=== PATIENT | male | born 1965 | race Caucasian/White ===

== ENCOUNTER 2024-05-16 13:02 | Inpatient (IN) | payer OTHER, SELFPAY ==
[2024-05-16] VITALS (15 sets, daily range): BP systolic 97–118; BP diastolic 70–88
[2024-05-16] MEDS: OFIRMEV 100 IV (10:39)
[2024-05-16] MEDS: NSS 1000 IV (10:39)
[2024-05-16 10:40] LABS: % Basophils 0.3 % (0-2); % Immature Granulocytes 0.7 % (0-0.5); % Lymphocytes 7.6 % (20.5-51.1); % Monocytes 7.3 % (1.7-9.3); % Neutrophils 84.1 % (42.2-75.2); Absolute Basophils 0.1 10^3/uL (0-0.2); Absolute Immature Granulocytes 0.2 10^3/uL (0-0.05); Absolute Lymphocytes 1.7 10^3/uL (1.2-3.4); Absolute Monocytes 1.6 10^3/uL (0.1-0.6); Absolute Neutrophils 18.8 10^3/uL (1.4-6.5); Hematocrit 41.1 % (39.0-52.0); Hemoglobin 14.2 g/dL (13.0-18.0); Mean Corp Hgb Conc. 34.5 g/dL (33.0-37.0); Mean Corpuscular Hgb 32.6 pg (27.0-31.0); Mean Corpuscular Volume 94.3 fL (80.0-94.0); Mean Platelet Volume 9.4 fL (7.4-10.4); Nucleated Red Blood Cells % 0 % (-); Platelet Count 343 10^3/uL (130-400); Red Blood Cell Count 4.36 10^6/uL (4.70-6.10); Red Cell Dist. Width 13.6 % (11.5-14.5); White Blood Cell Count 22.3 10^3/uL (4.8-10.8)
--- NOTE | 2024-05-16 10:44 | EDRN ---
When moving pt, he tenses his extremities and resists against nurse
--- NOTE | 2024-05-16 10:54 | ED.GENMED ---
History of Present Illness
General
Chief Complaint: Change in Mental Status
Source: detention records
Exam Limitations: clinical condition
Time Seen by Provider: 05/16/24 09:58
History of Present Illness
History of Present Illness:
58-year-old male with history of traumatic brain injury and COPD who presented with increased lethargy. Found to be febrile on arrival. Patient also has a history of schizoaffective disorder. Patient is unable to contribute to his own history as
he is currently nonverbal. He reportedly is more alert than yesterday.
Past History
Past History
ED Past Medical History: Other (Traumatic brain injury, COPD, schizophrenia, anxiety)
Social History
Alcohol: Occasional
Personal: Single
Living: with family
Phy Exam
Physical Exam
Physical Exam:
CONSTITUTIONAL Patient awake but a bit somnolent, febrile. Vital signs reviewed.
HEAD atraumatic
EYES eyelids normal to inspection, Extraocular muscles intact, Conjunctiva normal, Sclera normal.
NECK normal range of motion, Trachea midline, no jugular venous distention.
RESPIRATORY CHEST No respiratory distress noted, Chest expansion equal, hypoxic on telemetry, diminished bilaterally with few rhonchi scattered at the bases bilaterally
CARDIOVASCULAR regular rate and rhythm, Heart sounds normal.
ABDOMEN No distention.
BACK normal inspection, no obvious deformities
UPPER EXTREMITY no cyanosis, no edema.
LOWER EXTREMITY no cyanosis, no edema.
NEURO awake but slightly somnolent, I do not see any purposeful extremity movement.
Course
Orders/Labs/Results
Orders:
Orders
05/16/24 10:03
Chest X-ray Portable [CR Chest Portable - 1 View] Urgent
Comment:
Reason For Exam: fever
Reason Study Needs to be Portable: Unable to Transport
05/16/24 10:25
Acetaminophen 1000MG/100Ml [Ofirmev] 1,000 mg in 100 ml IV ONCE
Acetaminophen IV Indication:: No OH & No Enteral Access
05/16/24 10:26
0.9% Sodium Chloride 1000 ml [Nss] 1,000 ml IV BOLUS
05/16/24 10:28
COVID-19 Antigen Urgent
Source: Nasal Swab
Complete Blood Count/With Diff Urgent
Urinalysis Reflex To Culture Urgent
Date Specimen was Collected: 05/16/24
Time Specimen was Collected: 10:19
Blood Culture Urgent
HENNA Source: Blood/Venous
Specimen Description:
05/16/24 10:48
Comprehensive Metabolic Panel Urgent
Lactic Acid Urgent
05/16/24 10:52
Piperacillin/Tazo 4.5 Gram [Zosyn] 4.5 gram in 100 ml IV NOW
05/16/24 10:59
Vancomycin [Vancocin] 2,000 mg 0.9% Sodium Chloride 500 ml [Nss] 500 ml IV NOW
Abnormal Lab Results
05/16/24 05/16/24
10:28 10:48
WBC 22.3 H 10^3/uL
(4.8-10.8)
RBC 4.36 L 10^6/uL
(4.70-6.10)
MCV 94.3 H fL
(80.0-94.0)
MCH 32.6 H pg
(27.0-31.0)
Abs Immat Gran (auto) 0.2 H 10^3/uL
(0-0.05)
Absolute Neuts (auto) 18.8 H 10^3/uL
(1.4-6.5)
Absolute Monos (auto) 1.6 H 10^3/uL
(0.1-0.6)
Immature Gran % 0.7 H %
(0-0.5)
Neutrophils % 84.1 H %
(42.2-75.2)
Lymphocytes % 7.6 L %
(20.5-51.1)
Sodium 151 H mmol/L
(135-145)
Chloride 115 H mmol/L
(98-107)
BUN 31 H mg/dl
(9-20)
Glucose 125 H mg/dl
(70-99)
Albumin 3.2 L g/dl
(3.5-5.0)
Urine Bilirubin 1+ A
(Negative)
Urine Urobilinogen 2+ A
(Neg - 1+)
05/16/24 10:28
05/16/24 10:48
Vital Signs
Initial and Last Documented VS:
Initial Vital Signs
Temp Pulse Resp BP Pulse Ox
102.3 F H 104 31 104/78 84
05/16/24 10:16 05/16/24 10:16 05/16/24 10:16 05/16/24 10:16 05/16/24 10:16
Last Documented Vital Signs
Temp Pulse Resp BP Pulse Ox
102.3 F H 97 19 110/84 95
05/16/24 10:16 05/16/24 11:00 05/16/24 11:00 05/16/24 11:00 05/16/24 11:00
MDM/Problems Addressed
MDM/Problems Addressed:
Sepsis, pneumonia, leukocytosis, hypoxia
*Radiology
Radiology exam reviewed: preliminary read by ED provider (Pneumonia) and radiology read reviewed
*Pulse Oximetry
Patient hypoxic: yes
*Logging Crew Supervisor Interpretation
Rate: normal
Interpretation: normal
Rhythm: sinus
*Critical Care Note
Total Time (30-74mins, 75-104mins- exclusive of procedures): 35 minutes
Data Reviewed
Prescriptions/Medications Considered But Not Given:
Considered Rocephin and azithromycin but given patient comes from a local facility and is chronically ill treated for more advanced pathogens
Patient Management
Discussion with other providers: Hospitalist
Escalation/DeEscalation of care consider admission/obs:
Blood pressure stable. Getting fluids. Now more stable on high flow as his pulse ox was 85% on 6 L. Fever control and broad-spectrum antibiotics. Admit.
ED Attending Note
-
Portions of this chart may have been created with voice recognition software.� Occasional wrong word or��sound alike� substitutions may have occurred due to the inherent limitations of voice recognition software.
Discharge Plan
Departure
Patient Disposition: Admit
Date of Disposition: 05/16/24
Time of Disposition: 11:15
Admit to: Telemetry
Presentation/result/management discussed w/ accepting MD/DO: Hospitalist
Discharge Problem:
Sepsis, Pneumonia
Prescriptions:
No Action
acetaminophen 325 mg Tablet
650 mg PO Q6HPRN PRN (Reason: temp >100.4 mild pain)
bisacodyl 10 mg Suppository
10 mg OH DAILYPRN PRN (Reason: if on bm aftr mom)
thiamine HCl (vitamin B1) 100 mg Tablet
100 mg PO DAILY
melatonin 3 mg Tablet
3 mg PO HS
olanzapine 20 mg Tablet
20 mg PO HS
trazodone 50 mg Tablet
25 mg PO HS
polyethylene glycol 3350 [Miralax] 17 gram Powder In Packet
17 g PO DAILYPRN PRN (Reason: constipation)
magnesium hydroxide [Milk of Magnesia] 400 mg/5 mL Suspension
2,400 mg PO [id number] PRN (Reason: constipation)
Fleet Enema 19-7 gram/118 mL Enema
118 ml OH DAILYPRN PRN (Reason: if no bm aftr dulcolax)
haloperidol 2 mg Tablet
2 mg PO BID
lactulose 10 gram/15 mL (15 mL) Solution
20 g PO TID
Lorazepam Gel 1mg/Ml
1 applic topical Q4HPRN PRN (Reason: anxiety)
Referrals:
[place],Ronnie Dalton, DO [Family Provider] -
Interventions
Interventions:
*Risk Screen - Suicide Last Done: 05/16/24 10:17
*General Assessment Last Done: 05/16/24 10:17
*Neglect/Abuse Screening Last Done: 05/16/24 10:17
ED- Fall Risk Assessment Last Done: 05/16/24 10:43
ED- Pulmonary Assessment Last Done: 05/16/24 10:44
ED- Neurological Assessment Last Done: 05/16/24 10:43
ED- Cardiac Assessment Last Done: 05/16/24 10:42
ED Swallowing Screen Last Done: 05/16/24 10:42
Discharge Date and Time
Print Language: INDONESIAN
[2024-05-16 10:55] LABS: COVID-19 Antigen Negative (Negative)
[2024-05-16 10:58] LABS: Urine Albumin Trace (Neg - Trace); Urine Bilirubin 1+ (Negative); Urine Character Clear (Clear); Urine Color Yellow; Urine Glucose Negative (Negative); Urine Ketone Negative (Negative); Urine Leukocyte Negative (Negative); Urine Nitrite Negative (Negative); Urine Occult Blood Negative (Negative); Urine Specific Gravity 1.025 (<1.030); Urine Urobilinogen 2+ (Neg - 1+)
[2024-05-16] MEDS: ZOSYN 100 IV ×3 (11:04→22:54)
[2024-05-16 11:11] LABS: Lactic Acid 1.1 mmol/L (0.7-2.0)
[2024-05-16 11:13] LABS: ALT (SGPT) 28 U/L (0-50); AST (SGOT) 29 U/L (17-59); Albumin 3.2 g/dl (3.5-5.0); Alkaline Phosphatase 53 U/L (38-126); Blood Urea Nitrogen 31 mg/dl (9-20); Calcium 8.9 mg/dl (8.4-10.2); Carbon Dioxide 24 mmol/L (22-30); Chloride 115 mmol/L (98-107); Estimated Creatinine Clearance 84 ml/min; Glucose 125 mg/dl (70-99); Sodium 151 mmol/L (135-145); Total Bilirubin 0.9 mg/dl (0.2-1.3); Total Protein 6.3 g/dl (6.3-8.2); eGFR > 60.00
[2024-05-16] MEDS: VANCOCIN 540 MG IV (12:13)
--- NOTE | 2024-05-16 12:57 | HPS.HSE ---
Addendum entered and electronically signed by Dariana Enrique MD 05/16/24 13:50:
Patient seen and examined independently--agree with PA note as documented below--patient was sent from the shelter with fever and change in mental status, increased lethargy--he cannot offer anything to his history
GENERAL: well developed, well nourished, chronically ill appearing male in no apparent distress
HEENT: thick secretions in his mouth, 15L midflow O2
HEART: regular rate and rhythm, +S1, +S2
LUNGS : if pt tries to cough, suggestion of rhonchi left lung field; otherwise clear
ABDOM: soft, nontender, nondistended, + bowel sounds
EXT: no cyanosis, clubbing, or edema
NEUROLOGIC: nonverbal, not following commands
Acute Hypoxic Respiratory Failure and Sepsis with TME likely secondary to Pneumonia (confirmed by CXR) although seems subtle--agree with IMU admission due to requiring 15L O2, wean to keep pulse ox 93%--cont vanco/zosyn--will need speech eval
eventually--check chest CT
dilated intestinal loops (on CXR/limited view)--check CT ab/pelvis
Hypernatremia--suspected due to poor PO intake--Calculated Free Water Deficit 3.9L--Continue IVFs (D5 1/2 NSS)--follow
Traumatic Brain Injury - Unknown Baseline--Check Ammonia as another potential reversible cause of change in mental status--sister told PA that he has had 'liver issues'
Schizoaffective Disorder--Resume oral meds when more awake and after evaluated by speech
DVT proph: Lovenox
Code Status: Full Code (Patient's guardian makes all of patient's decisions in terms of advanced directives)
Spoke with patient's sister Erin (not Guardian) who is currently in [facility] until June. She can be reached at [phone]
Original Note:
Family Physician
-
Family Physician: Ronnie Whyte, DO
Chief Complaint
-
Change in Mental Status
History of Present Illness
Pt is a 58 yo M with PMH TBI, COPD, anxiety, and schizoaffective disorder transported from SNF due to increased lethargy. Staff noted pt is less alert compared to yesterday. Pt is currently nonverbal and unable to contribute history. Upon arrival to
the emergency department he was found to be febrile with temp 102.3F and hypoxic with initial pulse ox of 84%. Work-up in the emergency department revealed evidence of pneumonia and hypernatremia. Patient's sister noted she was recently informed he
recently had a problem with is liver a he was found to have an elevated ammonia level.
Medical History
Past Medical History
Past Medical History: Reports Other
Additional Past Medical History:
Traumatic Brain Injury
COPD
Schizoaffective Disorder
Past Surgical History: Reports Other (Unknown)
Social History
Drug: Former User (Per sister patient's has prior history of substance abuse)
Living: Assisted
Family History
Family History: Unable to Obtain
Allergies / Home Medications
Allergies reflects when Allergies were last updated in [employer].
Home Medications with original date entered in [employer]
Allergy/Medication List:
Allergies
Allergy/AdvReac Type Severity Reaction Status Date / Time
Sulfa (Sulfonamide Allergy Unknown Verified 07/19/23 19:07
Antibiotics)
Home Medications
acetaminophen 325 mg tablet 650 mg PO Q6HPRN PRN temp >100.4 mild pain 07/19/23
bisacodyl 10 mg rectal suppository [address] DAILYPRN PRN if on bm aftr mom 07/19/23
melatonin 3 mg tablet 3 mg PO HS Sleep 07/19/23
olanzapine 20 mg tablet 20 mg PO HS Mental Health 07/19/23
thiamine HCl (vitamin B1) 100 mg tablet 100 mg PO DAILY Supplement 07/19/23
Lorazepam Gel 1mg/Ml 1 applic topical Q4HPRN PRN anxiety 05/16/24
haloperidol 2 mg tablet 2 mg PO BID Mental Health 05/16/24
lactulose 10 gram/15 mL (15 mL) oral solution 20 g PO TID Gastrointestinal Issue 05/16/24
magnesium hydroxide 400 mg/5 mL oral suspension (Milk of Magnesia) 2,400 mg PO [id number] PRN constipation 05/16/24
polyethylene glycol 3350 17 gram oral powder packet (Miralax) 17 g PO DAILYPRN PRN constipation 05/16/24
sodium phosphates 19 gram-7 gram/118 mL enema (Fleet Enema) [address] DAILYPRN PRN if no bm aftr dulcolax 05/16/24
trazodone 50 mg tablet 25 mg PO HS Mental Health 05/16/24
Review of Systems
-
Unable to obtain full review of systems at this time due to: Patient Non-verbal
Physical Exam
Vital Signs
Vital Signs
Temp Pulse Resp BP Pulse Ox
99 F 90 17 97/76 94
05/16/24 11:48 05/16/24 12:15 05/16/24 12:15 05/16/24 12:00 05/16/24 12:15
Physical Exam
General: Well Developed and Well Nourished
HEENT: Oxygen (15L ) and Other (Thick mucus noted in mouth )
Cardiac: S1/S2 and Regular Rhythm; No Murmur
GI: Soft and Non Tender
Rectal: Deferred by Provider
Musculoskeletal: No Clubbing, No Cyanosis and No Edema
Skin: Warm and Dry
Neuro: Other (Patient grunted and openned his eyes to his name, and slightly wiggled his toes on command but otherwise unable to follow other commands, and is non-verbal)
Laboratory Results
-
05/16/24 10:28
05/16/24 10:48
Laboratory Results
Lactic Acid 1.1 mmol/L (0.7-2.0) 05/16/24 10:48
Total Bilirubin 0.9 mg/dl (0.2-1.3) 05/16/24 10:48
AST 29 U/L (17-59) 05/16/24 10:48
ALT 28 U/L (0-50) 05/16/24 10:48
Alkaline Phosphatase 53 U/L (38-126) 05/16/24 10:48
Data Reviewed
-
Diagnostic Radiology: Report Reviewed by me
Lab Data: Labs Reviewed by me
Impression/Plan
-
Acute Hypoxic Respiratory Failure and Sepsis secondary to Pneumonia
-Continue supplemental oxygen
-Continue Vancomycin and Zosyn
-Continue NPO - Consult Speech
-Check Chest/Abd/Pelvis CT scan
Hypernatremia
-Calculated Free Water Deficit 3.9L
-Continue IVFs
-Recheck sodium in AM
Traumatic Brain Injury - Unknown Baseline
-Check Ammonia as another potential reversible cause of change in mental status
Schizoaffective Disorder
-Resume oral meds when more awake and after evaluated by speech
DVT proph: Lovenox
Code Status: Full Code (Patient's guardian makes all of patient's decisions in terms of advanced directives)
Spoke with patient's sister Erin who is currently in [facility] until June. She can be reached at [phone]
[2024-05-16 13:18] LABS: Ammonia < 9 umol/L (9-30)
--- NOTE | 2024-05-16 14:44 | PHA.VAN.IN ---
Assessment
- Assessment
Renal Function: Unknown baseline
Concomitant Antimicrobials: piperacillin/tazobactam
AUC Dosing Plan
- Dosing Variables
Dosing Weight (kg): 83
Dosing CrCl (ml/min): 84
Vd coefficient (L/kg): 0.7
- Empiric Dosing
Initial / Loading Dose: 2000mg - 05/16 12:13
Maintenance Regimen: Vanc 1000mg Q12H starting 05/17 0600
Estimated AUC (mcg*h/mL): 482
Estimated Peak (mcg*h/mL): 29.2
Estimated Trough (mcg/ml): 12.9
Estimated Half Life (H): 9.3
Patient may require dose adjustment depending on SCR trend
- Monitoring
No levels ordered at this time: consider levels in next few days
MRSA Screen: Ordered per protocol
Pharmacokinetics Vancomycin I
- -
Patient Age: 58
Patient Sex: Male
Vancomycin Day #: 1
Indication: Pulmonary/Respiratory
Requesting Provider: Kamille Fisher
Pertinent Antimicrobial Allergies:
sulfonamide antibiotics - unknown
Height / Weight:
Height 6 ft 2 in
Actual Weight 82.6 kg
Pertinent Past Medical History: TBI
- Vital Signs / Lab Results
Temp Pulse Resp BP Pulse Ox
99 F 97 15 99/76 94
05/16/24 11:48 05/16/24 14:30 05/16/24 14:30 05/16/24 13:30 05/16/24 13:30
Lab Results - Hematology
05/16/24
10:28
WBC 22.3 H
Lab Results - Chemistry
05/16/24 05/16/24
10:28 10:48
BUN Cancelled 31 H
Creatinine Cancelled 1.1
Estimated Creat Clear Cancelled 84
Albumin Cancelled 3.2 L
05/16/24 05/16/24
10 10:48
Lactic Acid Cancelled 1.1
Lab Results - Urine
05/16/24
10:28
Urine Nitrite (Reflex) Negative
Leukocyte Esterase Rfl Negative
--- NOTE | 2024-05-16 15:15 | PTCARENOTE ---
Pt received from ED via stretcher. Nonverbal at this time. Pt unable to answer admission questions, completed to best of this RN's ability.
[2024-05-16] MEDS: D5/0.45%NACL 1000 IV ×2 (15:34→22:54)
--- NOTE | 2024-05-16 16:26 | W.PN.UPDATE ---
Update Note
Progress Note Update
Reviewed Chest/Abd/Pelvis CT Scan Result
Chest CT shows Occlusion of the left lower lobe bronchus, with associated near complete atelectasis of the left lower lobe. Scattered centrilobular nodules with a tree-in-bud configuration within the adjacent left lower lobe and Occlusion of a
subsegmental right lower lobe bronchus, with resulting subsegmental atelectasis in the right lower lobe - Consult Pulmonary
Abd/Pelvis CT shows Severe fecal retention within the rectum, which measures up to 7.8 cm in transverse dimension, with prominence of the remainder of the colon. Findings are likely reflective of severe constipation or rectal fecal impaction. -
Consult Colorectal
[2024-05-16] MEDS: LOVENOX 40 MG SC (18:08)
--- NOTE | 2024-05-16 18:29 | PTCARENOTE ---
Pt desating to the mid 80's on midflow. Put on a non-rebreather. Dr. Enrique notified, verbal order received for highflow O2. Respiratory therapy at bedside. Pt placed on 60L 100%. Sat recovered to low 90's.
[2024-05-16 18:46] LABS: Blood Urea Nitrogen 29 mg/dl (9-20); Calcium 8.8 mg/dl (8.4-10.2); Carbon Dioxide 22 mmol/L (22-30); Chloride 114 mmol/L (98-107); Estimated Creatinine Clearance 92 ml/min; Glucose 121 mg/dl (70-99); Sodium 149 mmol/L (135-145); eGFR > 60.00
[2024-05-16] MEDS: TYLENOL/FEVERALL 650 MG RECTAL (20:21)
[2024-05-16 20:31] LABS: Potassium 3.7 mmol/L (3.5-5.1)
--- NOTE | 2024-05-16 20:45 | PTCARENOTE ---
Received pt from paco RN. Pt is nonverbal, lethargic. NSR/ sinus tach on the monitor. On highflow 55L 100% O2 sat 97%, lungs diminished. Incont x2, # 25 c/c placed. Pt with a fever, PRN Tylenol given (see MAR) and ice packs placed on pt. Hygiene
provided, Q2T provided. Pt is laying in bed, with call landry in reach.
[2024-05-17] VITALS (12 sets, daily range): BP systolic 93–119; BP diastolic 67–88
[2024-05-17] MEDS: ZOSYN 100 IV ×4 (04:05→23:23)
[2024-05-17 04:21] LABS: Hematocrit 37.1 % (39.0-52.0); Hemoglobin 12.7 g/dL (13.0-18.0); Mean Corp Hgb Conc. 34.2 g/dL (33.0-37.0); Mean Corpuscular Hgb 33.2 pg (27.0-31.0); Mean Corpuscular Volume 96.9 fL (80.0-94.0); Mean Platelet Volume 9.2 fL (7.4-10.4); Platelet Count 280 10^3/uL (130-400); Red Blood Cell Count 3.83 10^6/uL (4.70-6.10); Red Cell Dist. Width 13.8 % (11.5-14.5); White Blood Cell Count 20.2 10^3/uL (4.8-10.8)
--- NOTE | 2024-05-17 04:28 | PTCARENOTE ---
Upon reassessment pt is now able to state his name, and responds with okay and yes. When asked repeated times and with encouragement.
[2024-05-17 04:43] LABS: Blood Urea Nitrogen 25 mg/dl (9-20); Calcium 8.5 mg/dl (8.4-10.2); Carbon Dioxide 24 mmol/L (22-30); Chloride 118 mmol/L (98-107); Estimated Creatinine Clearance 92 ml/min; Glucose 146 mg/dl (70-99); Potassium 3.9 mmol/L (3.5-5.1); Sodium 149 mmol/L (135-145); eGFR > 60.00
[2024-05-17] MEDS: VANCOCIN 200 IV (05:12)
[2024-05-17] MEDS: D5/0.45%NACL 1000 IV (07:50)
--- NOTE | 2024-05-17 08:40 | PTOTSP ---
Speech Language Pathology
Pt seen for clinical bedside swallow evaluation. P.O. trials of ice chips, thin liquids via straw, and puree provided. Impulsive rate of intake with liquids via straw. With consecutive sips, coughing episode noted with immediate desat into mid
80s. If OFFICE COORDINATOR RECEPTIONIST pinched straw for single sips, no overt signs of aspiration, but unable to rule out silent aspiration bedside.
Pt is at a high risk for aspiration given current 02 needs, mentation, and impulsivity. Will await pulmonary consult to determine need for VSE based on CT chest results (etiology for occlusion of bronchus).
Recommend:
(1) NPO
(2) Oral care 4x/day with suctioning as needed
(3) Allow sips of water (pinch straw for single sips) and ice chips post oral care when awake, given supervision, per Aspiration Risk Hydration Protocol (ARHP)
(4) Meds whole in puree
(5) OFFICE COORDINATOR RECEPTIONIST to continue to follow. Will determine need for VSE pending progress
--- NOTE | 2024-05-17 09:06 | CON.PUL ---
Addendum entered and electronically signed by Anya Kinney DO 05/17/24 14:01:
MRSA screen negative, will stop Vanc
Original Note:
Consultation
Consultation Request
Date/Time Consultation Requested: 05/17/24
Date/Time Consultation Performed: 05/17/24
Performing Provider: Gregoria
Reason for Consultation: Hypoxemia, TBI hx
Medical History
-
History of Present Illness:
Patient is a 58 year old M with PMH of reported TBI, COPD, anxiety, and schizoaffective disorder transported from [facility] due to increased lethargy. Staff noted patient had become less alert in the past 24 hours.
Upon arrival to the emergency department he was found to be febrile with temp 102.3F and hypoxic with initial pulse ox of 84%. Work-up in the emergency department revealed evidence of pneumonia and hypernatremia. CT showing bilateral atelectasis
and mucus impaction, he is placed on HFNC and admitted to IMU.
Patient is currently nonverbal and unable to contribute history. He reportedly had a guardian and a sister who is not his healthcare proxy.
.
Past Medical History
Past Medical History: Other (see list below)
Social History
Tobacco: Non-smoker
Alcohol: None
Drug: None
Family History
Family History: Reviewed & Not Pertinent
Allergies / Home Medications
Allergies
Allergy/AdvReac Type Severity Reaction Status Date / Time
Sulfa (Sulfonamide Allergy Unknown Verified 07/19/23 19:07
Antibiotics)
Home Medications
�Medication �Instructions �Recorded �Confirmed �Last Taken �Type
acetaminophen 325 mg tablet 650 mg PO Q6HPRN PRN temp >100.4 07/19/23 05/16/24 Unknown History
mild pain
bisacodyl 10 mg rectal suppository 10 mg IA DAILYPRN PRN if on bm 07/19/23 05/16/24 Unknown History
aftr mom
melatonin 3 mg tablet 3 mg PO HS Sleep 07/19/23 05/16/24 Unknown History
olanzapine 20 mg tablet 20 mg PO Mental Health 07/19/23 05/16/24 Unknown History
thiamine HCl (vitamin B1) 100 mg 100 mg PO DAILY Supplement 07/19/23 05/16/24 Unknown History
tablet
Lorazepam Gel 1mg/Ml 1 applic topical Q4HPRN PRN anxiety 05/16/24 05/16/24 Unknown History
haloperidol 2 mg tablet 2 mg PO BID Mental Health 05/16/24 05/16/24 Unknown History
lactulose 10 gram/15 mL (15 mL) 20 g PO TID Gastrointestinal Issue 05/16/24 05/16/24 Unknown History
oral solution
magnesium hydroxide 400 mg/5 mL 2,400 mg PO [id number] PRN 05/16/24 05/16/24 Unknown History
oral suspension (Milk of Magnesia) constipation
polyethylene glycol 3350 17 gram 17 g PO DAILYPRN PRN constipation 05/16/24 05/16/24 Unknown History
oral powder packet (Miralax)
sodium phosphates 19 gram-7 118 ml IA DAILYPRN PRN if no bm 05/16/24 05/16/24 Unknown History
gram/118 mL enema (Fleet Enema) aftr dulcolax
trazodone 50 mg tablet 25 mg PO Mental Health 05/16/24 05/16/24 Unknown History
Review of Systems
-
History Source: Patient
All other systems: Negative unless noted
Vitals / Labs / Diagnostic Testing
Vital Signs
Temp Pulse Resp BP Pulse Ox
99.4 F 80 16 102/80 96
05/17/24 07:00 05/17/24 08:06 05/17/24 08:06 05/17/24 08:06 05/17/24 08:45
Lab Data
05/17/24 04:12
05/17/24 04:12
Microbiology
05/16/24 14:49 Nose Nasal Screen MRSA (PCR) - Final
MRSA not detected - performed by PCR methodology.
Diagnostic Testing:
Physical Exam
-
HEENT: Normocephalic, Anicteric and Moist Mucous Membranes
Cardiovascular: S1/S2 and Regular Rhythm
Respiratory: Clear (decreased overall) and Non-Labored Respirations
GI: Soft, Non Distended and Non Tender
Neurology: Awake and Other (does not answer/groans, is notably drooling)
Skin: Warm and Dry
General: Poor Appetite and Other (chronically ill appearing)
Assessment
-
Patient is a 58 year old M with PMH of reported TBI, COPD, anxiety, and schizoaffective disorder transported from [facility] due to increased lethargy. Staff noted patient had become less alert in the past 24 hours.
Upon arrival to the emergency department he was found to be febrile with temp 102.3F and hypoxic with initial pulse ox of 84%. Work-up in the emergency department revealed evidence of pneumonia and hypernatremia. CT showing bilateral atelectasis
and mucus impaction, he is placed on HFNC and admitted to IMU.
Patient is currently nonverbal and unable to contribute history. He reportedly had a guardian and a sister who is not his healthcare proxy.
Acute hypoxic respiratory failure on high flow nasal cannula
Bilateral atelectasis with mucus impaction
Ineffective airway clearance
Fever, suspect from PNA
Cognitive impairment at baseline
Leukocytosis
Hyponatremia
Severe fecal retention in the rectum
FTT
Conditions present prior to admission
Traumatic Brain Injury
COPD
Schizoaffective Disorder
Plan
Hypoxemia noted on arrival, placed on HFNC
Not known to be on home O2
Prior history of lung disease is noted including COPD
No PFTs for review, not maintained on inhalers as OP
CT reviewed showing bilateral basilar atelectasis
This is likely due to poor airway clearance, possible chronic aspiration
Underlying pneumonia cannot be excluded although suspicious given fever and leukocytosis
Agree with empiric antibiotics
Patient does not demonstrate adequate mental status for effective cough or airway protection
This is going to be an issue long-term
He would need tracheostomy and vent management to effectively clear secretions
Speech has been consulted, however demonstrating inability to understand instructions
Eval: 'Impulsive rate of intake with liquids via straw. With consecutive sips, coughing episode noted with immediate desat into mid 80s.'
High aspiration risk/likelihood, but I do not know the utility in VSE or sip trials if he does not have the ability to follow diet instructions
Would continue n.p.o. status for now
Severe rectal impaction, nonsurgical candidate
He is demonstrating failure to thrive
Overall prognosis poor in a patient with underlying traumatic brain injury and cognitive impairment
Lack of airway protection and effective cough
We will add airway clearance measures at this time, unclear if he will be amenable
Utility in bronchoscopy would be temporarily helpful as he would reaccumulate mucous
He does have a guardian, he is currently full code
Would recommend palliative care discussions
We will follow
Diagnostic Data
Chest X-Ray:
CT Scan: CT CAP 05/16/24- 1. Occlusion of the left lower lobe bronchus, with associated near complete atelectasis of the left lower lobe. Scattered centrilobular nodules with a tree-in-bud configuration within the adjacent left lower lobe. Overall,
findings are likely infectious, however given bronchial occlusion, follow-up imaging to resolution is recommended. Bronchoscopy may also be considered.
2. Occlusion of a subsegmental right lower lobe bronchus, with resulting subsegmental atelectasis in the right lower lobe.
3. Borderline enlargement of a right hilar lymph node, measuring 1.4 cm in short axis dimension.
4. Severe fecal retention within the rectum, which measures up to 7.8 cm in transverse dimension, with prominence of the remainder of the colon. Findings are likely reflective of severe constipation or rectal fecal impaction.
5. Compression fracture involving the superior endplate of L4, associated with approximately 30% height loss. This may be acute or chronic, please correlate with symptoms.
Echo:
PFT's:
Reports and relevant images were personally reviewed.
Total time spent on this consultation __77__ includes review of history, physical exam, medications, laboratory data, personal review of imaging, extensive review of outpatient records, discussion with care team and respiratory therapy.
--- NOTE | 2024-05-17 09:21 | W.PN.HOSP.TC ---
Today's Communication/Plan
-
consider ID consult
await pulm input
apprec CRS
wean HI CHANDRAKANT O2
Assessment / Plan
Assessment / Plan
pt is a 58 year old male
Acute Hypoxic Respiratory Failure and Sepsis with TME likely secondary to Pneumonia (confirmed by CXR) although seems subtle--cont HI CHANDRAKANT, wean to keep pulse ox 93%--cont vanco/zosyn--speech eval, NPO-- chest CT with occlusion of the left lower lobe
bronchus--await pulm input--need to discern who is making decisions for patient as sister involved BUT pt has 2 guardians....CM investigating
dilated intestinal loops (on CXR/limited view)--CT ab/pelvis with fecal impaction--apprec CRS--for enema
Hypernatremia--suspected due to poor PO intake--sodium 151 down to 149--Continue IVFs (D5 09/24 NSS)--follow
Traumatic Brain Injury - Unknown Baseline-- Ammonia < 9--sister told PA that he has had 'liver issues'
Schizoaffective Disorder--Resume oral meds when more awake and after evaluated by speech--consider psych consult
DVT proph: Lovenox
Code Status: Full Code (Patient's guardian makes all of patient's decisions in terms of advanced directives)
Spoke with patient's sister Erin (not Guardian) who is currently in [facility] until June. She can be reached at [phone]--apparently very involved
Total Critical Care Time 31 minutes. I was immediately available to the patient and staff. I personally examined, reviewed labs, diagnostic images/reports, interpretations, treatment plans, discussed patient care with other providers and family
or caregivers (if patient is unable to make decisions), entered orders as appropriate and documented the medical record.
Anticipated Discharge: > 48 hours
Subjective/Interval History
-
Date of Service: May 17, 2024
pt still essentially nonverbal
Objective Data
-
Labs:
Laboratory Results
05/17/24
04:12
WBC 20.2 H
Hgb 12.7 L
Hct 37.1 L
Plt Count 280
Sodium 149 H
Potassium 3.9
Chloride 118 H
Carbon Dioxide 24
BUN 25 H
Creatinine 1.0
Glucose 146 H
Calcium 8.5
Vital Signs:
max temp for 24 hours
05/16/24
10:16
Temp 102.3 F H
Vital Signs
Temp Pulse Resp BP Pulse Ox
99.4 F 80 16 102/80 96
05/17/24 07:00 05/17/24 08:06 05/17/24 08:06 05/17/24 08:06 05/17/24 08:45
I&O
05/16/24 05/17/24 05/18/24
06:59 06:59 06:59
Intake Total 2275 / 2275
Output Total 500 / 500
Balance 1775 / 1775
Review of Systems
-
Unable to obtain full review of systems at this time due to: Acuity and Patient Non-verbal
Physical Exam
-
General: Well Developed, Well Nourished, No Apparent Distress and Appears Chronically Ill
HEENT: Normocephalic, Atraumatic and Oxygen (HI CHANDRAKANT 50/50 per nursing)
Respiratory: Clear to Auscultation; Negative Wheezes or Rhonchi
Cardiac: Regular Rhythm and S1/S2; Negative Murmur
GI: Soft, Nontender, Nondistended and Normal Bowel Sounds
Musculoskeletal: No Clubbing, No Cyanosis and No Edema
Neuro: Awake
Psych: Calm
--- NOTE | 2024-05-17 09:22 | CM ---
Addendum entered by Sunita Collins 05/17/24 16:16:
Guardian here to see patient, spoke with patient sister in [place] and per guardian requested transfer to [facility]. CM will send clinical information. Copy of Guardianship documentation received and will place on chart.
Addendum entered by Sunita Collins 05/17/24 14:58:
Per [facility] at [facility], patient has a Guardian of finances Mohsen Shea [phone], and per Aspen Mohsen Shea is also Guardian of person. CM spoke with Mohsen Shea and requested a copy of Guardianship record. Per Mohsen he is indeed the
Guardian of Person, Finances and Estate. Physician provided update to Guardian and per Mohsen, information is able to be provided to sister. CM spoke with Facility and left message for social work to have update provided. CM will continue to follow
for discharge planning.
Original Note:
Patient from [facility]. Patient seen at bedside in IMU. Patient has Guardian of support and separate guardian of finances. Sister is in [place] and calling for updates. CM left VM for admissions at [facility] asking for prior level of
functioning and copy of Guardianship. CM will continue to follow for discharge planning needs.
Plan; return to SNF
[2024-05-17] MEDS: [UNRECOGNIZED DRUG - OTHER] IV ×2 (10:51→21:30)
[2024-05-17] MEDS: D5 IV ×2 (10:51→21:30)
--- NOTE | 2024-05-17 11:12 | PTCARENOTE ---
While providing patient care, pt noted to be awake with eyes open, noticed possible facial drooping of the right side. Responsive to some verbal commands. Pt did not respond to sensation of the right side. Dr. Enrique notified via TT. Order
received for head CT.
--- NOTE | 2024-05-17 11:42 | CON.CRS ---
Consultation
-
Date/Time Consultation Requested: 05/16/2024, 16:36
Date/Time Consultation Performed: 05/17/2024, 08:45
Requesting Provider: Courtney Fisher PA-C
Performing Provider: Taye Frankel MD
Reason for Consultation: fecal impaction
Medical History
-
Chief Complaint: lethargy
History of Present Illness:
58-year-old male, with schizoaffective disorder transported from a senior care facility, presents to [facility] yesterday due to increased lethargy. The patient is not able to verbalize thus the HPI has been derived from facility and
physician notes. The patient has apparently been lethargic for the past day or so at the nursing facility. In the ER he had a temperature of 102.3 and was hypoxic with a pulse ox of 84%. In the ER his WBC was 22.3. He was started on IV
antibiotics. CT of the abdomen pelvis shows occlusion of the left lower lobe bronchus, occlusion of his subsegmental right lower lobe bronchus, borderline enlargement of the right shanna lymph node, and severe fecal retention in the rectum
measuring up to 7.8 cm. We have been consulted for further surgical management.
Past Medical History
Past Medical History: Other (Traumatic Brain Injury, COPD, Schizoaffective Disorder)
Past Surgical History: Other (Unknown)
Social History
Drug: Former User
Living: Group Home
Family History
Family History: Unable to Obtain
Allergies / Home Medications
Allergy/AdvReac Type Severity Reaction Status Date / Time
Sulfa (Sulfonamide Allergy Unknown Verified 07/19/23 19:07
Antibiotics)
�Medication �Instructions �Recorded �Confirmed �Type
acetaminophen 325 mg tablet 650 mg PO Q6HPRN PRN temp >100.4 07/19/23 05/16/24 History
mild pain
bisacodyl 10 mg rectal suppository 10 mg RI DAILYPRN PRN if on bm 07/19/23 05/16/24 History
aftr mom
melatonin 3 mg tablet 3 mg PO HS Sleep 07/19/23 05/16/24 History
olanzapine 20 mg tablet 20 mg PO HS Mental Health 07/19/23 05/16/24 History
thiamine HCl (vitamin B1) 100 mg 100 mg PO DAILY Supplement 07/19/23 05/16/24 History
tablet
Lorazepam Gel 1mg/Ml 1 applic topical Q4HPRN PRN anxiety 05/16/24 05/16/24 History
haloperidol 2 mg tablet 2 mg PO BID Mental Health 05/16/24 05/16/24 History
lactulose 10 gram/15 mL (15 mL) 20 g PO TID Gastrointestinal Issue 05/16/24 05/16/24 History
oral solution
magnesium hydroxide 400 mg/5 mL 2,400 mg PO [id number] PRN 05/16/24 05/16/24 History
oral suspension (Milk of Magnesia) constipation
polyethylene glycol 3350 17 gram 17 g PO DAILYPRN PRN constipation 05/16/24 05/16/24 History
oral powder packet (Miralax)
sodium phosphates 19 gram-7 118 ml RI DAILYPRN PRN if no bm 05/16/24 05/16/24 History
gram/118 mL enema (Fleet Enema) aftr dulcolax
trazodone 50 mg tablet 25 mg PO HS Mental Health 05/16/24 05/16/24 History
Review of Systems
-
Unable to obtain full review of systems at this time due to: Patient Non Verbal
Constitutional: Fatigue
A 10 point review of systems was completed, and was negative except as per HPI.
Physical Exam
Vital Signs
Temp 99.4 F 05/17/24 07:00
Pulse 89 05/17/24 10:00
Resp Rate 30 05/17/24 10:00
Blood pressure 109/86 05/17/24 10:00
SaO2 96 05/17/24 08:45
08/05/17/24 05/18/24
06:59 06:59 06:59
Actual Weight 82.6 kg
Lab Results / Allergies
05/17/24 04:12
05/17/24 04:12
WBC 20.2 10^3/uL (4.8-10.8) H 05/17/24 04:12
Hgb 12.7 g/dL (13.0-18.0) L 05/17/24 04:12
Hct 37.1 % (39.0-52.0) L 05/17/24 04:12
Plt Count 280 10^3/uL (130-400) 05/17/24 04:12
Abs Immat Gran (auto) 0.2 10^3/uL (0-0.05) H 05/16/24 10:28
Neutrophils % 84.1 % (42.2-75.2) H 05/16/24 10:28
Allergy/AdvReac Type Severity Reaction Status Date / Time
Sulfa (Sulfonamide Allergy Unknown Verified 07/19/23 19:07
Antibiotics)
Physical Exam
General: Other (Nonverbal, lethargic)
GI: Soft, Non Tender and Non Distended
Rectal: Other (Putty like stool in the rectal vault, no masses noted, no bleeding)
Data Reviewed
-
CT Scan: Image Personally Visualized and interpreted, Report Reviewed by me and Discussed with Patient
Labs: Labs Reviewed by me, Discussed with Physician and Discussed with Family
Old Records: Reviewed
Assessment / Plan
-
Assessment: 58-year-old male from a senior care facility with a history of TBI and COPD, presents to [facility] with lethargy and found to have a fever of 102.9 as well as an elevated WBC of 22, found on CT with multiple occluded bronchi and
severe fecal retention in the rectum
Plan:
-No role for surgery at this time
-Unable to disimpact due to quality of the stool, recommend enemas
-Will follow
[2024-05-17] MEDS: DUONEB 3 ML INH ×2 (14:30→20:08)
[2024-05-17] MEDS: LOVENOX 40 MG SC (17:43)
--- NOTE | 2024-05-17 20:12 | PTCARENOTE ---
Received pt from dayshift RN. Pt is AAOx1 (self), says yes and okay. NSR on the monitor. Received pt on 10L midflow, weaned to 5L midflow O2 sat 95%, lungs diminished/rhonchi. Pt incont x2. IVF infusing @ 125 ml/hr. Hygiene provided. Pt is laying in
bed with call landry in reach.
[2024-05-18] VITALS (11 sets, daily range): BP systolic 92–143; BP diastolic 61–124; PULSE 81; O2SAT 99
[2024-05-18] MEDS: [UNRECOGNIZED DRUG - OTHER] IV ×2 (05:26→11:47)
[2024-05-18] MEDS: D5 IV ×2 (05:26→11:47)
[2024-05-18] MEDS: ZOSYN 100 IV ×4 (05:26→22:28)
[2024-05-18 06:03] LABS: % Basophils 0.3 % (0-2); % Immature Granulocytes 0.8 % (0-0.5); % Lymphocytes 16.2 % (20.5-51.1); % Monocytes 4.5 % (1.7-9.3); % Neutrophils 77.2 % (42.2-75.2); Absolute Basophils 0.1 10^3/uL (0-0.2); Absolute Eosinophils 0.2 10^3/uL (0-0.7); Absolute Immature Granulocytes 0.1 10^3/uL (0-0.05); Absolute Lymphocytes 2.5 10^3/uL (1.2-3.4); Absolute Monocytes 0.7 10^3/uL (0.1-0.6); Hematocrit 34.2 % (39.0-52.0); Hemoglobin 11.7 g/dL (13.0-18.0); Mean Corp Hgb Conc. 34.2 g/dL (33.0-37.0); Mean Corpuscular Hgb 32.1 pg (27.0-31.0); Mean Platelet Volume 9.7 fL (7.4-10.4); Nucleated Red Blood Cells % 0 % (-); Platelet Count 321 10^3/uL (130-400); Red Blood Cell Count 3.64 10^6/uL (4.70-6.10); Red Cell Dist. Width 13.7 % (11.5-14.5); White Blood Cell Count 15.5 10^3/uL (4.8-10.8)
[2024-05-18 06:25] LABS: Blood Urea Nitrogen 19 mg/dl (9-20); Calcium 8.7 mg/dl (8.4-10.2); Carbon Dioxide 22 mmol/L (22-30); Chloride 113 mmol/L (98-107); Estimated Creatinine Clearance 103 ml/min; Glucose 114 mg/dl (70-99); Potassium 4.1 mmol/L (3.5-5.1); Sodium 146 mmol/L (135-145); eGFR > 60.00
[2024-05-18] MEDS: DUONEB 3 ML INH ×4 (07:39→19:33)
--- NOTE | 2024-05-18 08:18 | W.PN.PUL3 ---
Today's Communication / Plan
-
Improved, transitioned off HFNC to 3L midflow
Abx continued for presumed PNA, will repeat CXR in AM
VSE planning per speech
Reliable airway clearance will be a persistent issue
PT/OT planning
GOC discussions warranted with guardian
Assessment
-
Patient is a 58 year old M with PMH of reported TBI, COPD, anxiety, and schizoaffective disorder transported from [facility] due to increased lethargy. Staff noted patient had become less alert in the past 24 hours. Upon arrival to the emergency department
he was found to be febrile with temp 102.3F and hypoxic with initial pulse ox of 84%. Work-up in the emergency department revealed evidence of pneumonia and hypernatremia. CT showing bilateral atelectasis and mucus impaction, he is placed on HFNC
and admitted to IMU. We are consulted for eval.
Acute hypoxic respiratory failure on high flow nasal cannula
Bilateral atelectasis with mucus impaction
Ineffective airway clearance
Fever, suspect from PNA
Cognitive impairment at baseline
Leukocytosis
Hyponatremia
Severe fecal retention in the rectum
FTT
Conditions present prior to admission
Traumatic Brain Injury
COPD
Schizoaffective Disorder
Plan
Hypoxemia noted on arrival, placed on HFNC--now transitioned to NC, 3L
Satting 88% due to excessive mouth breathing, try venti mask, reviewed with RT
Not known to be on home O2
Prior history of lung disease is noted including COPD
No PFTs for review, not maintained on inhalers as OP
Continue empiric Duonebs QID
CT reviewed showing bilateral basilar atelectasis
This is likely due to poor airway clearance, possible chronic aspiration
Underlying pneumonia cannot be excluded although suspicious given fever and leukocytosis
Agree with empiric antibiotics
Patient does not demonstrate adequate mental status for effective cough or airway protection
This is going to be an issue long-term
He would need tracheostomy and vent management to effectively clear secretions
Airway clearance continued, but this is limited based on his MS/cooperation
Repeat CXR in AM
Speech has been consulted, however demonstrating inability to understand instructions
Eval: 'Impulsive rate of intake with liquids via straw. With consecutive sips, coughing episode noted with immediate desat into mid 80s.'
High aspiration risk/likelihood, but I do not know the utility in VSE or sip trials if he does not have the ability to follow diet instructions
Would continue n.p.o. status for now
VSE planning
Severe rectal impaction, nonsurgical candidate
He is demonstrating failure to thrive
Overall prognosis poor in a patient with underlying traumatic brain injury and cognitive impairment
Lack of airway protection and effective cough
We will add airway clearance measures at this time, unclear if he will be amenable
Utility in bronchoscopy would be temporarily helpful as he would reaccumulate mucous
He does have a guardian, he is currently full code
Would recommend palliative care discussions
Diagnostic Data
Chest X-Ray:
CT Scan: CT CAP 05/16/24- 1. Occlusion of the left lower lobe bronchus, with associated near complete atelectasis of the left lower lobe. Scattered centrilobular nodules with a tree-in-bud configuration within the adjacent left lower lobe. Overall,
findings are likely infectious, however given bronchial occlusion, follow-up imaging to resolution is recommended. Bronchoscopy may also be considered.
2. Occlusion of a subsegmental right lower lobe bronchus, with resulting subsegmental atelectasis in the right lower lobe.
3. Borderline enlargement of a right hilar lymph node, measuring 1.4 cm in short axis dimension.
4. Severe fecal retention within the rectum, which measures up to 7.8 cm in transverse dimension, with prominence of the remainder of the colon. Findings are likely reflective of severe constipation or rectal fecal impaction.
5. Compression fracture involving the superior endplate of L4, associated with approximately 30% height loss. This may be acute or chronic, please correlate with symptoms.
Echo:
PFT's:
Reports and relevant images were personally reviewed.
Total time spent on this encounter __51__ includes review of history, physical exam, medications, laboratory data, personal review of imaging, extensive review of outpatient records, discussion with care team and respiratory therapy.
Subjective Data
-
Date of Service:
Date of Service: May 18, 2024
Chief Complaint: Pulmonary Follow Up
Subjective:
Improving, now off HFNC on midflow 3L
Mouth breathing, sat 88%
Not able to consistently follow commands
More awake/alert now
Objective Data
Data Reviewed
Vital Signs / I&O / Oxygen:
Vital Signs
Temp Pulse Resp BP Pulse Ox
97.9 F 61 18 143/112 100
05/18/24 05:47 05/18/24 07:39 05/18/24 07:39 05/18/24 06:00 05/18/24 07:39
Intake and Output
05/17/24 05/18/24 05/19/24
06:59 06:59 06:59
Intake Total 2275 / 2275 3200 / 3200
Output Total 500 / 500 450 / 450
Balance 1775 / 1775 2750 / 2750
SaO2 100
Nasal Cannula flow liters per 10
minute
Physical Exam
General: Poor Appetite and Other (chronically ill appearing, speaks but not appropriate)
HEENT: Normocephalic, Anicteric, Moist Mucous Membranes and Other (poor dentition, eyes wide open/staring)
Cardiovascular: S1-S2 and Regular Rhythm
Respiratory: Crackles, Non-Labored Respirations and Other (tachypneic/mouth breathing but in distress)
GI: Soft, Non Distended and Non Tender
Neurology: Awake, Alert, Tremors and Other (not consistently following commands or answering appropriately)
Skin: Warm and Dry
Labs/Micro/Reports
Lab Data
05/18/24 05:38
05/18/24 05:38
Microbiology
05/16/24 10:28 Blood/Venous Blood Culture - Preliminary
Positive culture in progress
05/16/24 10:28 Blood/Venous Gram Stain - Preliminary
05/16/24 14:49 Nose Nasal Screen MRSA (PCR) - Final
MRSA not detected - performed by PCR methodology.
--- NOTE | 2024-05-18 08:30 | PTCARENOTE ---
Patient received from police worker. Patient resting comfortably in bed. AAOx1 mostly to self. VSS at this time. No events noted overnight. IVF through IV, ABX to be continued. Patient non-verbal pain assessment, low score. Still currently NPO,
speech to see later. Call landry in reach.
--- NOTE | 2024-05-18 09:40 | W.PN.CRS1 ---
Today's Communication / Plan
-
suppository
abdominal xray
Assessment/Plan
-
Assessment: 58-year-old male from a long-term facility with a history of TBI and COPD, presents to [place] [facility] with lethargy and found to have a fever of 102.9 as well as an elevated WBC of 22, found on CT with multiple occluded bronchi and
severe fecal retention in the rectum
Plan:
-No role for surgery at this time
-Unable to disimpact due to quality of the stool, recommend enemas
-Will order suppository
-Okay for magnesium citrate PRN and miralax daily once can swallow
-Abdominal xrays ordered to see extent of fecal retention
Subjective Data
Subjective Data
Date of Service: May 18, 2024
Patient is non-verbal. He has had no bowel movements overnight per RN.
Objective Data
-
Vital Signs
Temp Pulse Resp BP Pulse Ox
97.9 F 61 18 143/112 100
05/18/24 05:47 05/18/24 07:39 05/18/24 07:39 05/18/24 06:00 05/18/24 07:39
Intake & Output
05/17/24 05/18/24 05/19/24
06:59 06:59 06:59
Intake Total 2275 / 2275 3200 / 3200
Output Total 500 / 500 450 / 450
Balance 1775 / 1775 2750 / 2750
Intake:
Oral fluids 0 / 0 0 / 0
IV fluids (Total) 1875 / 1875 3000 / 3000
IV piggybacks 400 / 400 200 / 200
Output:
Urine, Billy 500 / 500
Straight cath output 450 / 450
Other:
How many times incontinent 1
MODERATE amount urine
How many times incontinent 1 2
SATURATED amount urine
Number of unmeasured liquid
stools
Rectum 1
Lab Results
05/18/24 05:38
05/18/24 05:38
Physical Exam
-
General: No Acute Distress and AOx3
Abdomen: Soft, Non Distended and Non Tender
Skin: Warm and Dry
[2024-05-18] MEDS: DULCOLAX 10 MG RECTAL (09:59)
--- NOTE | 2024-05-18 10:28 | W.PN.HOSP.TC ---
Today's Communication/Plan
-
VSE
cont current management
once can wean to lower O2, can transfer out of IMU
Assessment / Plan
Assessment / Plan
pt is a 58 year old male
Acute Hypoxic Respiratory Failure and Sepsis with TME likely secondary to Pneumonia (confirmed by CXR) although seems subtle--off HI CHANDRAKANT, wean to keep pulse ox 93%, now on 10L midflow--cont vanco/zosyn--apprec speech eval, NPO, VSE-- chest CT with
occlusion of the left lower lobe bronchus--apprec pulm input
CT ab/pelvis with fecal impaction--apprec CRS--suppository
Hypernatremia--suspected due to poor PO intake--sodium 151 down to 146--Continue IVFs (D5W)--follow
Traumatic Brain Injury - Unknown Baseline-- Ammonia < 9--sister told PA that he has had 'liver issues'
Schizoaffective Disorder--Resume oral meds when more awake and after evaluated by speech--consider psych consult
DVT proph: Lovenox
Code Status: Full Code (Patient's guardian makes all of patient's decisions in terms of advanced directives)
Spoke with patient's sister Erin (not Guardian) who is currently in [facility] until June. She can be reached at [phone]--apparently very involved
spoke with guardian (Mohsen Shea) in person and sister Erin by phone to update 05/17/24
Anticipated Discharge: > 48 hours
Subjective/Interval History
-
Date of Service: May 18, 2024
pt more awake
Objective Data
-
Labs:
Laboratory Results
05/18/24
05:38
WBC 15.5 H
Hgb 11.7 L
Hct 34.2 L
Plt Count 321
Sodium 146 H
Potassium 4.1
Chloride 113 H
Carbon Dioxide 22
BUN 19
Creatinine 0.9
Glucose 114 H
Calcium 8.7
Vital Signs:
max temp for 24 hours
05/17/24
23:20
Temp 99 F
Vital Signs
Temp Pulse Resp BP Pulse Ox
98.8 F 61 18 143/112 100
05/18/24 07:05 05/18/24 07:39 05/18/24 07:39 05/18/24 06:00 05/18/24 07:39
I&O
05/17/24 05/18/24 05/19/24
06:59 06:59 06:59
Intake Total 2275 / 2275 3200 / 3200
Output Total 500 / 500 450 / 450
Balance 1775 / 1775 2750 / 2750
Review of Systems
-
Unable to obtain full review of systems at this time due to: Acuity
Physical Exam
-
General: Well Developed, Well Nourished and No Apparent Distress
HEENT: Normocephalic, Atraumatic and Oxygen (still on 10 L)
Respiratory: Clear to Auscultation; Negative Wheezes or Rhonchi
Cardiac: Regular Rhythm and S1/S2; Negative Murmur
GI: Soft, Nontender, Nondistended and Normal Bowel Sounds
Musculoskeletal: No Clubbing, No Cyanosis and No Edema
Neuro: Awake
Psych: Calm
--- NOTE | 2024-05-18 10:36 | CM ---
Patient seen at bedside. Patient referral to [facility] pending acceptance. CM will continue to follow for discharge planning needs.
Plan; SNF placement will need auth.
[2024-05-18] MEDS: D5W 1000 IV (11:41)
--- NOTE | 2024-05-18 12:20 | PTOTSP ---
Speech Language Pathology
VIDEOFLUOROSCOPIC SWALLOWING EXAMINATION (VSE) completed. Overall, pt with mod oropharyngeal dysphagia. Significant pharyngeal residue noted with increased viscosity. Supraglottic penetration typically noted with thin and mildly thick liquids
with responsive aspiration noted with thin liquid via cup when used as a liquid wash post regular solids. Suspect acute on chronic dysphagia given hx of TBI and CT chest results on admission. Short-term prognosis for diet advancement guarded,
long-term prognosis fair.
Recommend:
(1) IDDSI Level 4 (Puree) and Moderately Thick Liquids
(2) Aspiration precautions: sit upright, full supervision with assist as needed, slow rate, liquids via tsp or straw, ensure oral cavity clear post P.O. intake
(3) Meds whole in puree
(4) CLOTH SHRINKER to continue to follow
[2024-05-18] MEDS: FLEET MINERAL OIL ENEMA 133 ML RECTAL ×2 (14:24→21:04)
[2024-05-18] MEDS: LOVENOX 40 MG SC (17:55)
[2024-05-18] MEDS: TYLENOL 650 MG PO (17:56)
[2024-05-18] MEDS: HALDOL 2 MG PO (19:57)
[2024-05-18] MEDS: ZYPREXA 20 MG PO (21:04)
[2024-05-18] MEDS: DUPHALAC/CHRONULAC 20 GRAMS PO (21:04)
[2024-05-18] MEDS: DESYREL 25 MG PO (21:04)
--- NOTE | 2024-05-18 23:11 | PTCARENOTE ---
assumed care of patient. pt oriented to self, able to state his name and say yes or no. x2 assist. able to take pills with applesauce. walked in at shift change to [facility] staff feeding patient. pt then noted to be coughing a lot after dinner. pt
suctioned for thin sputum and old food. mouth care done. q2t. pt had a smear of stool, cleaned up and enema given. care ongoing.
[2024-05-19] VITALS (11 sets, daily range): BP systolic 93–146; BP diastolic 60–89
[2024-05-19] MEDS: ZOSYN 100 IV ×4 (04:36→23:28)
[2024-05-19] MEDS: D5W 1000 IV ×2 (04:36→23:28)
[2024-05-19 05:09] LABS: Hematocrit 32.6 % (39.0-52.0); Hemoglobin 11.6 g/dL (13.0-18.0); Mean Corp Hgb Conc. 35.6 g/dL (33.0-37.0); Mean Corpuscular Hgb 33.1 pg (27.0-31.0); Mean Corpuscular Volume 93.1 fL (80.0-94.0); Mean Platelet Volume 10.1 fL (7.4-10.4); Platelet Count 317 10^3/uL (130-400); Red Cell Dist. Width 13.7 % (11.5-14.5); White Blood Cell Count 11.6 10^3/uL (4.8-10.8)
[2024-05-19 05:53] LABS: Blood Urea Nitrogen 17 mg/dl (9-20); Calcium 8.3 mg/dl (8.4-10.2); Carbon Dioxide 18 mmol/L (22-30); Chloride 112 mmol/L (98-107); Estimated Creatinine Clearance > 125 ml/min; Glucose 102 mg/dl (70-99); Magnesium 2.3 mg/dl (1.6-2.3); Potassium 3.9 mmol/L (3.5-5.1); Sodium 139 mmol/L (135-145); eGFR > 60.00
[2024-05-19] MEDS: DUONEB 3 ML INH ×4 (05:57→19:29)
[2024-05-19] MEDS: VITAMIN B1 100 MG PO (09:14)
[2024-05-19] MEDS: DUPHALAC/CHRONULAC PO ×4 (09:14→20:36)
[2024-05-19] MEDS: HALDOL 2 MG PO (09:15)
--- NOTE | 2024-05-19 09:24 | PTCARENOTE ---
Multiple attempts made to administer Lactulose; pt unable to follow commands and prompts to drink medication. Unable to administer. Dr. Serrano notified.
--- NOTE | 2024-05-19 09:29 | W.PN.HOSP.TC ---
Today's Communication/Plan
-
Tx to med surg
Assessment / Plan
Assessment / Plan
pt is a 58 year old male
Acute Hypoxic Respiratory Failure and Sepsis with TME likely secondary to Pneumonia (confirmed by CXR) although seems subtle--off HI CHANDRAKANT, wean to keep pulse ox 93%, now on 2L midflow--cont zosyn--apprec speech eval- on modified diet-- chest CT with
occlusion of the left lower lobe bronchus--apprec pulm input
CT ab/pelvis with fecal impaction--apprec CRS--suppository/enema plus laxatives.
Hypernatremia--suspected due to poor PO intake--s normalized. Continue with low-dose IV fluids to lower level intake is adequate.
Traumatic Brain Injury - Unknown Baseline-- Ammonia < 9--sister told PA that he has had 'liver issues'
Schizoaffective Disorder--Resume oral meds
DVT proph: Lovenox
Code Status: Full Code (Patient's guardian makes all of patient's decisions in terms of advanced directives)
Dr. Enrique Spoke with patient's sister Erin (not Guardian) who is currently in [facility] until June. She can be reached at [phone]--apparently very involved
spoke with guardian (Mohsen Shea) in person and sister Erin by phone to update 05/17/24
NEHA RN
Tx to med surg
Anticipated Discharge: 24 - 48 hours
Subjective/Interval History
-
Date of Service: May 19, 2024
Seems sleepy. Arousable.
When asked how he is feeling his today's horrible.
When asked is a because of the pain he said yes and then became quiet.
When asked if his abdominal pain, he again becomes quiet.
'Do you know where you are ?'
He says ' i do' but couldnt tell where he is . Seems to nod off again.
Objective Data
-
Labs:
Laboratory Results
05/19/24 05/19/24
04:33 05:30
WBC 11.6 H
Hgb 11.6 L
Hct 32.6 L
Plt Count 317
Sodium 139
Potassium 3.9
Chloride 112 H
Carbon Dioxide 18 L
BUN 17
Creatinine 0.7
Glucose 102 H
Calcium 8.3 L
Vital Signs:
Vital Signs
Temp Pulse Resp BP Pulse Ox
98.8 F 78 17 112/79 100
05/19/24 07:32 05/19/24 06:00 05/19/24 06:00 05/19/24 06:00 05/19/24 06:00
I&O
05/18/24 05/19/24 05/20/24
06:59 06:59 06:59
Intake Total 3200 / 3200 1100 / 1100
Output Total 450 / 450 500 / 500
Balance 2750 / 2750 600 / 600
Review of Systems
-
Unable to obtain full review of systems at this time due to: Other (see above plus hx of TBI)
Physical Exam
-
General: No Apparent Distress
HEENT: Moist Mucous Membranes
Respiratory: Clear to Auscultation (ANTERIORLY)
Cardiac: Regular Rhythm and S1/S2
GI: Soft and Nontender
Neuro: Negative Awake (SLEEPY BUT AROUSABLE)
Psych: Calm
Data Reviewed
-
Labs: Labs Reviewed by me
--- NOTE | 2024-05-19 10:34 | W.PN.CRS1 ---
Today's Communication / Plan
-
enemas and suppositories prn
Assessment/Plan
-
Assessment: 58-year-old male from a assisted facility with a history of TBI and COPD, presents to [place] ER with lethargy and found to have a fever of 102.9 as well as an elevated WBC of 22, found on CT with multiple occluded bronchi and
severe fecal retention in the rectum
Plan:
-No role for surgery at this time
-Unable to disimpact due to quality of the stool, recommend enemas
-Will order suppositories PRN
-Okay for magnesium citrate PRN and miralax daily once can swallow
-Will sign off, please contact us if further issues arise
Subjective Data
Subjective Data
Date of Service: May 19, 2024
Patient is nonverbal. Per nursing he had multiple bowel movements overnight.
Objective Data
-
Vital Signs
Temp Pulse Resp BP Pulse Ox
98.8 F 78 17 112/79 98
05/19/24 07:32 05/19/24 06:00 05/19/24 06:00 05/19/24 06:00 05/19/24 08:26
Intake & Output
05/18/24 05/19/24 05/20/24
06:59 06:59 06:59
Intake Total 3200 / 3200 1100 / 1100
Output Total 450 / 450 500 / 500
Balance 2750 / 2750 600 / 600
Intake:
Oral fluids 0 / 0
IV fluids (Total) 3000 / 3000 800 / 800
IV piggybacks 200 / 200 300 / 300
Output:
Straight cath output 450 / 450 500 / 500
Other:
How many times incontinent 1 1
MODERATE amount urine
How many times incontinent 2
SATURATED amount urine
Number of unmeasured liquid
stools
Rectum 1
Lab Results
05/19/24 04:33
05/19/24 05:30
Physical Exam
-
General: No Acute Distress
Abdomen: Soft, Non Distended and Non Tender
Skin: Warm and Dry
[2024-05-19] MEDS: FLEET MINERAL OIL ENEMA 133 ML RECTAL (10:52)
--- NOTE | 2024-05-19 11:02 | W.PN.PUL3 ---
Today's Communication / Plan
-
Weaning down on O2, can likely wean to RA
CXR showing increased R basilar consolidation/likely aspiration
NPO now, may need alternate means to give oral nutrition
Finish 5 day course of abx
High risk aspiration with reduced cognitive ability to do airway clearance
GOC would be recommended
Assessment
-
Patient is a 58 year old M with PMH of reported TBI, COPD, anxiety, and schizoaffective disorder transported from [facility] due to increased lethargy. Staff noted patient had become less alert in the past 24 hours. Upon arrival to the emergency department
he was found to be febrile with temp 102.3F and hypoxic with initial pulse ox of 84%. Work-up in the emergency department revealed evidence of pneumonia and hypernatremia. CT showing bilateral atelectasis and mucus impaction, he is placed on HFNC
and admitted to IMU. We are consulted for eval.
Acute hypoxic respiratory failure on high flow nasal cannula
Bilateral atelectasis with mucus impaction
Ineffective airway clearance
Fever, suspect from PNA
Cognitive impairment at baseline
Leukocytosis
Hyponatremia
Severe fecal retention in the rectum
FTT
Conditions present prior to admission
Traumatic Brain Injury
COPD
Schizoaffective Disorder
Plan
Hypoxemia noted on arrival, placed on HFNC--now transitioned to NC, 1L
Significant improvement
Not known to be on home O2, can likely wean to off
Prior history of lung disease is noted including COPD
No PFTs for review, not maintained on inhalers as OP
Continue empiric Duonebs QID
CT reviewed showing bilateral basilar atelectasis
This is likely due to poor airway clearance, possible chronic aspiration
Underlying pneumonia cannot be excluded although suspicious given fever and leukocytosis
Agree with empiric antibiotics
Patient does not demonstrate adequate mental status for effective cough or airway protection
This is going to be an issue long-term
He would need tracheostomy and vent management to effectively clear secretions
Airway clearance continued, but this is limited based on his MS/cooperation
Repeat CXR in AM showing increased R basilar PNA
Speech has been consulted, however demonstrating inability to understand instructions
Eval: 'Impulsive rate of intake with liquids via straw. With consecutive sips, coughing episode noted with immediate desat into mid 80s.'
High aspiration risk/likelihood, but I do not know the utility in VSE or sip trials if he does not have the ability to follow diet instructions
Would continue n.p.o. status for now
May need alternate means of oral intake
Severe rectal impaction, nonsurgical candidate
He is demonstrating failure to thrive
Overall prognosis poor in a patient with underlying traumatic brain injury and cognitive impairment
Lack of airway protection and effective cough
We will add airway clearance measures at this time, unclear if he will be amenable
Utility in bronchoscopy would be temporarily helpful as he would reaccumulate mucous
He does have a guardian, he is currently full code
Would recommend palliative care discussions
Diagnostic Data
Chest X-Ray:
CT Scan: CT CAP 05/16/24- 1. Occlusion of the left lower lobe bronchus, with associated near complete atelectasis of the left lower lobe. Scattered centrilobular nodules with a tree-in-bud configuration within the adjacent left lower lobe. Overall,
findings are likely infectious, however given bronchial occlusion, follow-up imaging to resolution is recommended. Bronchoscopy may also be considered.
2. Occlusion of a subsegmental right lower lobe bronchus, with resulting subsegmental atelectasis in the right lower lobe.
3. Borderline enlargement of a right hilar lymph node, measuring 1.4 cm in short axis dimension.
4. Severe fecal retention within the rectum, which measures up to 7.8 cm in transverse dimension, with prominence of the remainder of the colon. Findings are likely reflective of severe constipation or rectal fecal impaction.
5. Compression fracture involving the superior endplate of L4, associated with approximately 30% height loss. This may be acute or chronic, please correlate with symptoms.
Echo:
PFT's:
Reports and relevant images were personally reviewed.
Total time spent on this encounter __51__ includes review of history, physical exam, medications, laboratory data, personal review of imaging, extensive review of outpatient records, discussion with care team and respiratory therapy.
Subjective Data
-
Date of Service:
Date of Service: May 19, 2024
Chief Complaint: Pulmonary Follow Up
Subjective:
Improved, now on RA
Nonverbal/no ROS
Objective Data
Data Reviewed
Vital Signs / I&O / Oxygen:
Vital Signs
Temp Pulse Resp BP Pulse Ox
98.8 F 83 17 112/79 97
05/19/24 07:32 05/19/24 10:59 05/19/24 10:59 05/19/24 06:00 05/19/24 10:59
Intake and Output
05/18/24 05/19/24 05/20/24
06:59 06:59 06:59
Intake Total 3200 / 3200 1100 / 1100
Output Total 450 / 450 500 / 500
Balance 2750 / 2750 600 / 600
SaO2 97
Nasal Cannula flow liters per 1
minute
Physical Exam
General: Poor Appetite and Other (chronically ill appearing, speaks but not appropriate)
HEENT: Normocephalic, Anicteric, Moist Mucous Membranes and Other (poor dentition, eyes wide open/staring)
Cardiovascular: S1-S2 and Regular Rhythm
Respiratory: Clear, Non-Labored Respirations and Other (tachypneic/mouth breathing but in distress)
GI: Soft, Non Distended and Non Tender
Neurology: Awake, Alert, Tremors and Other (not consistently following commands or answering appropriately)
Skin: Warm and Dry
Labs/Micro/Reports
Lab Data
05/19/24 04:33
05/19/24 05:30
Microbiology
05/18/24 05:38 Blood/Venous Blood Culture - Preliminary
No Growth in 24 hours- Final report to follow
05/16/24 10:28 Blood/Venous Blood Culture - Preliminary
Coagulase neg. staphylococcus
Additional testing on request
05/16/24 10:28 Blood/Venous Gram Stain - Preliminary
05/16/24 14:49 Nose Nasal Screen MRSA (PCR) - Final
MRSA not detected - performed by PCR methodology.
--- NOTE | 2024-05-19 11:15 | PTCARENOTE ---
While providing mouth care, this RN noted some remaining applesauce in pt's mouth from morning med pass. Speech therapy at bedside to evaluate pt.
--- NOTE | 2024-05-19 11:30 | PTOTSP ---
Speech Language Pathology
Pt seen for dysphagia tx. Per notes, coughing noted after dinner last evening. RN this morning reported oral residue of puree after meds in puree. Oral care completed with use of suction toothbrush. Seen with P.O. trials of puree and moderately
thick liquids via tsp. Prolonged bolus formation and A-P transit with mild diffuse oral residue, which had to be suctioned by ENCAPSULATOR. Coughing episode with 1/4 trials of puree. Pt then extremely drowsy, so further trials deferred. Pt is at a high
risk for aspiration.
Recommend:
(1) Downgrade to strict NPO
(2) Oral care 4x/day with suctioning as needed
(3) Non-oral meds
(4) ENCAPSULATOR to continue to follow
--- NOTE | 2024-05-19 12:17 | CM ---
Patient seen at bedside. Patient accepted for transfer when medically appropriate per physicians. Patient Guardian requested transfer. CM will continue to follow for discharge planning needs.
Plan; SNF
--- NOTE | 2024-05-19 13:41 | PTCARENOTE ---
Pt presents as assessed. Drowsy and sleeping intermittently. NPO per speech. Mouth care provided. NSR with prolonged QT on tele monitor. Sating high 90's on 2L MF. IVF infusing as ordered. Bladder scan and cath per protocol. Q2T maintained.
[2024-05-19] MEDS: DUONEB INH (15:50)
[2024-05-19] MEDS: LOVENOX 40 MG SC (17:42)
--- NOTE | 2024-05-19 18:08 | PTCARENOTE ---
Pt downgraded to med surg. Report to receiving RN. Belongings collected from room. Transferred to [facility]- via stretcher.
[2024-05-19] MEDS: HALDOL PO (19:43)
[2024-05-19] MEDS: DESYREL PO (20:36)
[2024-05-19] MEDS: ZYPREXA PO (20:36)
[2024-05-20] MEDS: FLEET MINERAL OIL ENEMA 133 ML RECTAL ×3 (00:53→20:15)
[2024-05-20] MEDS: ZOSYN 100 IV ×4 (04:56→22:57)
--- NOTE | 2024-05-20 06:30 | PTCARENOTE ---
Pt without void during shift. Bladder scan at 0600 was 470 mL. This RN attempted straight cath but was unsuccessful x2. On third attempt, urine began draining from the catheter but the pt began to spontaneously urinate and the catheter fell out;
an accurate measurement of urine output could not be performed. A postvoid bladder scan of 7 mL was conducted by this RN. Linens changed and pt turned on his right side.
[2024-05-20] MEDS: DUONEB 3 ML INH ×3 (07:49→15:49)
[2024-05-20 08:00] VITALS: BP 113/75
--- NOTE | 2024-05-20 10:57 | CM ---
Patient from [facility], per prior notes patient will now be going to [facility].
Per Jean liaison for [facility] they are able to accept patient.
Patient will require insurance auth from [facility]
NPI# for facility [id number]
; Dr Ovalle NPI# [id number]
Spoke with Francine from [facility] and updated that patient would be going to another facility.
Spoke with Jean to if PASSR required, he will call back.
PT/OT recommending skilled.
Speech recommending NPO.
Plan: skilled rehab when medically stable. will need insurance auth.
[2024-05-20] MEDS: DUPHALAC/CHRONULAC PO ×3 (11:24→22:20)
[2024-05-20] MEDS: HALDOL PO ×2 (11:24→20:29)
[2024-05-20] MEDS: VITAMIN B1 PO (11:25)
--- NOTE | 2024-05-20 12:10 | W.PN.PUL3 ---
Today's Communication / Plan
-
Has remains stable on RA, improved oxygenation
Chronic aspiration will remain an issue, currently NPO, alternate means of PO intake needed/speech following
Will complete abx for 5 days, to end 05/21
PT/OT evals ongoing
GOC discussions would be appropriate
No further recs from our standpoint
We will sign off at this time, please call with questions
Assessment
-
Patient is a 58 year old M with PMH of reported TBI, COPD, anxiety, and schizoaffective disorder transported from SNF due to increased lethargy. Staff noted patient had become less alert in the past 24 hours. Upon arrival to the emergency department
he was found to be febrile with temp 102.3F and hypoxic with initial pulse ox of 84%. Work-up in the emergency department revealed evidence of pneumonia and hypernatremia. CT showing bilateral atelectasis and mucus impaction, he is placed on HFNC
and admitted to IMU. We are consulted for eval.
Acute hypoxic respiratory failure on high flow nasal cannula
Bilateral atelectasis with mucus impaction
Ineffective airway clearance
Fever, suspect from PNA
Cognitive impairment at baseline
Leukocytosis
Hyponatremia
Severe fecal retention in the rectum
FTT
Conditions present prior to admission
Traumatic Brain Injury
COPD
Schizoaffective Disorder
Plan
Hypoxemia noted on arrival, placed on HFNC--now transitioned to RA, stable
Significant improvement
Not known to be on home O2
Prior history of lung disease is noted including COPD
No PFTs for review, not maintained on inhalers as OP
Continue empiric Duonebs QID
CT reviewed showing bilateral basilar atelectasis
This is likely due to poor airway clearance, possible chronic aspiration
Underlying pneumonia cannot be excluded although suspicious given fever and leukocytosis
Agree with empiric antibiotics, will change total course for 5 days to end 05/21
Patient does not demonstrate adequate mental status for effective cough or airway protection
This is going to be an issue long-term
He would need tracheostomy and vent management to effectively clear secretions
Airway clearance continued, but this is limited based on his MS/cooperation
Repeat CXR in AM showing increased R basilar PNA, can repeat as OP
Speech has been consulted, however demonstrating inability to understand instructions
Eval: 'Impulsive rate of intake with liquids via straw. With consecutive sips, coughing episode noted with immediate desat into mid 80s.'
High aspiration risk/likelihood, but I do not know the utility in VSE or sip trials if he does not have the ability to follow diet instructions
Would continue n.p.o. status for now
May need alternate means of oral intake
Severe rectal impaction, nonsurgical candidate
He is demonstrating failure to thrive
Overall prognosis poor in a patient with underlying traumatic brain injury and cognitive impairment
Lack of airway protection and effective cough
We will add airway clearance measures at this time, unclear if he will be amenable
Utility in bronchoscopy would be temporarily helpful as he would reaccumulate mucous
He does have a guardian, he is currently full code
Would recommend palliative care discussions
Diagnostic Data
Chest X-Ray:
CT Scan: CT CAP 05/16/24- 1. Occlusion of the left lower lobe bronchus, with associated near complete atelectasis of the left lower lobe. Scattered centrilobular nodules with a tree-in-bud configuration within the adjacent left lower lobe. Overall,
findings are likely infectious, however given bronchial occlusion, follow-up imaging to resolution is recommended. Bronchoscopy may also be considered.
2. Occlusion of a subsegmental right lower lobe bronchus, with resulting subsegmental atelectasis in the right lower lobe.
3. Borderline enlargement of a right hilar lymph node, measuring 1.4 cm in short axis dimension.
4. Severe fecal retention within the rectum, which measures up to 7.8 cm in transverse dimension, with prominence of the remainder of the colon. Findings are likely reflective of severe constipation or rectal fecal impaction.
5. Compression fracture involving the superior endplate of L4, associated with approximately 30% height loss. This may be acute or chronic, please correlate with symptoms.
Echo:
PFT's:
Reports and relevant images were personally reviewed.
Total time spent on this encounter __36__ includes review of history, physical exam, medications, laboratory data, personal review of imaging, extensive review of outpatient records, discussion with care team and respiratory therapy.
Subjective Data
-
Date of Service:
Date of Service: May 20, 2024
Chief Complaint: Pulmonary Follow Up
Subjective:
Doing well, stable on RA
Clinically remains unchanged
Objective Data
Data Reviewed
Vital Signs / I&O / Oxygen:
Vital Signs
Temp Pulse Resp BP Pulse Ox
98.0 F 92 18 113/75 94
05/20/24 08:00 05/20/24 11:29 05/20/24 11:29 05/20/24 08:00 05/20/24 08:00
Intake and Output
05/19/24 05/20/24 05/21/24
06:59 06:59 06:59
Intake Total 1100 / 1100 100 / 100 800 / 800
Output Total 500 / 500 525 / 525
Balance 600 / 600 -425 / -425 800 / 800
SaO2 94
Nasal Cannula flow liters per 1
minute
Physical Exam
General: Poor Appetite and Other (chronically ill appearing, speaks but not appropriate)
HEENT: Normocephalic, Anicteric, Moist Mucous Membranes and Other (poor dentition, eyes wide open/staring)
Cardiovascular: S1-S2 and Regular Rhythm
Respiratory: Clear, Non-Labored Respirations and Other (tachypneic/mouth breathing but in distress)
GI: Soft, Non Distended and Non Tender
Neurology: Awake, Alert, Tremors and Other (not consistently following commands or answering appropriately)
Skin: Warm and Dry
Labs/Micro/Reports
Lab Data
05/19/24 04:33
05/19/24 05:30
Microbiology
05/18/24 05:38 Blood/Venous Blood Culture - Preliminary
No Growth in 48 hours- Final report to follow
05/16/24 10:28 Blood/Venous Blood Culture - Preliminary
Coagulase neg. staphylococcus
Additional testing on request
05/16/24 10:28 Blood/Venous Gram Stain - Preliminary
[2024-05-20 15:57] VITALS: BMI 23.4
[2024-05-20 16:00] VITALS: BP 139/76
--- NOTE | 2024-05-20 16:16 | W.PN.HOSP.TC ---
Today's Communication/Plan
-
await speech follow up
IVF NPO
Psyche eval.
Assessment / Plan
Assessment / Plan
pt is a 58 year old male with acute hypoxic respiratory failure
CVS: S1-S2 normal
Chest: decreased breath sounds, poor respiratory effort
Abdomen: Soft, NT / Bowel sounds present
Extremities: No edema
Patient does not follow instructions. Awake, he stares at you says a word or 2 and another language , does not answer questions.
# Acute Hypoxic Respiratory Failure and Sepsis with TME likely secondary to Pneumonia (confirmed by CXR)
Although seems subtle--off HI CHANDRAKANT, Off O2 now
Cont Zosyn--apprec speech eval- on modified diet-- chest CT with occlusion of the left lower lobe bronchus--apprec pulm input
Speech eval noted. Patient n.p.o.
#CT ab/pelvis with fecal impaction--apprec CRS--suppository/enema plus laxatives. MiraLAX, Senokot on hold secondary to n.p.o. status
#Hypernatremia--suspected due to poor PO intake--sodium normalized. Continue with low-dose IV fluids to lower level intake is adequate.
#Traumatic Brain Injury - Unknown Baseline-- Ammonia < 9--sister told PA that he has had 'liver issues'
#Schizoaffective Disorder--continue Haldol 2 mg p.o. twice daily, lorazepam 1 mg as needed, olanzapine 20 mg at bedtime, trazodone 25 mg at bedtime-when patient can take p.o. Currently n.p.o. even for medicines per discussion with speech. I have
requested psychiatry evaluation to get advice on medicines/parenteral routes.
#Compression fracture involving the superior endplate of L4, associated with approximately 30% height loss.
#DVT proph: Lovenox
#Code Status: Full Code (Patient's guardian makes all of patient's decisions in terms of advanced directives)
'Dr. Enrique Spoke with patient's sister Erin (not Guardian) who is currently in [facility] until June. She can be reached at [phone]--apparently very involved
spoke with guardian (Mohsen Shea) in person and sister Erin by phone to update 05/17/24'
Discussed with nursing at bedside
Anticipated Discharge: 24 - 48 hours
Subjective/Interval History
-
Date of Service: May 20, 2024
Objective Data
-
Vital Signs:
Vital Signs
Temp Pulse Resp BP Pulse Ox
98.0 F 80 18 113/75 97
05/20/24 08:00 05/20/24 15:51 05/20/24 15:51 05/20/24 08:00 05/20/24 15:51
I&O
05/19/24 05/20/24 05/21/24
06:59 06:59 06:59
Intake Total 1100 / 1100 100 / 100 800 / 800
Output Total 500 / 500 525 / 525
Balance 600 / 600 -425 / -425 800 / 800
[2024-05-20] MEDS: LOVENOX 40 MG SC (18:20)
[2024-05-20] MEDS: D5W 1000 IV (18:20)
[2024-05-20] MEDS: DUONEB INH (20:28)
[2024-05-20] MEDS: ZYPREXA PO (22:20)
[2024-05-20] MEDS: DESYREL PO (22:20)
[2024-05-20 23:51] VITALS: BP 111/66
[2024-05-21] MEDS: ZOSYN 100 IV ×2 (04:57→12:56)
[2024-05-21] MEDS: DUONEB 3 ML INH ×4 (07:24→19:27)
[2024-05-21 07:41] LABS: Blood Urea Nitrogen 8 mg/dl (9-20); Calcium 8.6 mg/dl (8.4-10.2); Carbon Dioxide 22 mmol/L (22-30); Chloride 104 mmol/L (98-107); Estimated Creatinine Clearance 116 ml/min; Glucose 104 mg/dl (70-99); Sodium 137 mmol/L (135-145); eGFR > 60.00
[2024-05-21 07:45] VITALS: BP 121/77
[2024-05-21 08:38] LABS: Hematocrit 32.5 % (39.0-52.0); Hemoglobin 11.3 g/dL (13.0-18.0); Mean Corp Hgb Conc. 34.8 g/dL (33.0-37.0); Mean Corpuscular Hgb 32.2 pg (27.0-31.0); Mean Corpuscular Volume 92.6 fL (80.0-94.0); Mean Platelet Volume 9.3 fL (7.4-10.4); Platelet Count 406 10^3/uL (130-400); Red Blood Cell Count 3.51 10^6/uL (4.70-6.10); Red Cell Dist. Width 13.2 % (11.5-14.5); White Blood Cell Count 9.1 10^3/uL (4.8-10.8)
[2024-05-21] MEDS: DUPHALAC/CHRONULAC PO ×3 (10:03→22:15)
[2024-05-21] MEDS: HALDOL PO ×2 (10:09→20:20)
[2024-05-21] MEDS: VITAMIN B1 PO (10:09)
--- NOTE | 2024-05-21 13:21 | CON.MD ---
Addendum entered and electronically signed by Ish Oviedo MD 05/21/24 15:01:
as of yet no ecg...have ordered prn zyprexa 5 mg pending knowledge that qtc is ok
note some of patient's issues w swallowing may have to do w impact of antipsychotics. of course there are other factors as well.
Addendum entered and electronically signed by Ish Oviedo MD 05/21/24 14:57:
spoke to his guardian who could give me little background. 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 gf of an overdose. it is unclear how patient became brain injured. the patient was deemed in need of a guardian and mr green is a
court appointed guardian as no one else would step up to the plate. [facility] was the only facility that would accept him but tells me he now has a bed at another facility [facility] after discussion w dr kim and mr green who were
unhappy with his care. texted by dr karimi patient unable to take po and has not received zyprexa and haldol which is not necessarily a bad thing if he can remains stable without it. will cancel the po prn and add an iv prn of ativan and an im of
an antipsychotic. if the ecg is okay would use haldol as it is less likely to cause constipation. .
Original Note:
Consultation - Medical
-
patient seen chart reviewed. spoke with nursing. the patient is a 58 year old male who could give no history. there is a dx of schizophrenia in the chart and as well TBI. the patient was seen here at twice in the past. most recent was in fall
of 2022 when he was referred by [facility] for agitation which included throwing feces. the patient wound up returned to [facility]. he was referred to er on this admit bc lethargy thought secondary to acute respiratory infection with sepsis.
he was also noted to have severe fecal impaction currently being rx w enemas. psychiatric medications include haldol 2 mg bid trazodone 25 mg q hs and zyprexa 20 mg q day. it does not appear that patient has been agitated since admit.
past psych hx not known patient seen here in 2017 brought in by police and noted in chart some hx of substance abuse
medical hx see above hx copd tbi aspiration risk as per speech head cat severe atrophy cxr pneumonia mild anemia w hgb 11.3 bili and urobilinogen in urine bp 121/77 no ecg in chart
substance abuse presumably none [place] but see above in past psych hx
family hx not known
social hx [place] sister currently in [facility]. left message for guardian marry green at number in chart [id number] to get more background
mse patient lying in bed starting unable to engage in any conversation
dx traumatic brain injury ?schizophrenia by hx
plan patient is taking two antipsychotics. it is not clear whether he needs them although there seems to be some hx agitation. see above re 2022 er visit. zyprexa is VERY antichoinergic and among other factors likely contributes to the severe
constipation. would cut it back to 15 mg and monitor. at this point he is very still and unresponsive although eyes are open. would use ativan if needed for agitation given he is already on two antiipsychotics would check ecg re qtc. will follow
[2024-05-21] MEDS: FLEET MINERAL OIL ENEMA 133 ML RECTAL ×2 (14:27→20:20)
--- NOTE | 2024-05-21 14:31 | W.PN.HOSP.TC ---
Today's Communication/Plan
-
speech re eval daily till cleared for PO
IVF
Assessment / Plan
Assessment / Plan
pt is a 58 year old male with acute hypoxic respiratory failure
CVS: S1-S2 normal
Chest: decreased breath sounds, poor respiratory effort
Abdomen: Soft, NT / Bowel sounds present
Extremities: No edema
Patient does not follow instructions. Awake, and alert, follows some directions, not consistently.
# Acute Hypoxic Respiratory Failure and Sepsis with TME likely secondary to Pneumonia (confirmed by CXR)
Although seems subtle--off HI CHANDRAKANT, Off O2 now
Cont Zosyn-- chest CT with occlusion of the left lower lobe bronchus--apprec pulm input
Speech eval noted. Patient n.p.o. now
Speech to see again
#CT ab/pelvis with fecal impaction--apprec CRS--suppository/enema plus laxatives. MiraLAX, Senokot on hold secondary to n.p.o. status
#Hypernatremia--suspected due to poor PO intake--sodium normalized. Continue with low-dose IV fluids
#Traumatic Brain Injury - Unknown Baseline-- Ammonia < 9--sister told PA that he has had 'liver issues'
#Schizoaffective Disorder--continue Haldol 2 mg p.o. twice daily, lorazepam 1 mg as needed, olanzapine 20 mg at bedtime, trazodone 25 mg at bedtime-when patient can take p.o. Currently n.p.o. even for medicines per discussion with speech. I have
requested psychiatry evaluation to get advice on medicines/parenteral routes.
#Compression fracture involving the superior endplate of L4, associated with approximately 30% height loss.
#DVT proph: Lovenox
#Code Status: Full Code (Patient's guardian makes all of patient's decisions in terms of advanced directives)
('Dr. Enrique Spoke with patient's sister Erin (not Guardian) who is currently in [facility] until June. She can be reached at [phone]--apparently very involved
spoke with guardian (Mohsen Shea) in person and sister Erin by phone to update 05/17/24')
Discussed with nursing at bedside
I Spoke to patient's guardian Mohsen Shea today, reviewed that he is n.p.o. per speech recommendation. He is aware that if he continues to fail speech evaluation it comes to a point where PEG tube/palliative care or hospice may need to be pursued.
Nursing to page speech therapy to evaluate again today.
D/W Psyche
Anticipated Discharge: 24 - 48 hours
Subjective/Interval History
-
Date of Service: May 21, 2024
Objective Data
-
Labs:
Laboratory Results
05/21/24
07:01
WBC 9.1
Hgb 11.3 L
Hct 32.5 L
Plt Count 406 H D
Sodium 137
Potassium 4.0
Chloride 104
Carbon Dioxide 22
BUN 8 L
Creatinine 0.8
Glucose 104 H
Calcium 8.6
Vital Signs:
Vital Signs
Temp Pulse Resp BP Pulse Ox
97.4 F 82 18 121/77 97
05/21/24 07:45 05/21/24 11:13 05/21/24 11:13 05/21/24 07:45 05/21/24 11:13
I&O
05/20/24 05/21/24 05/22/24
06:59 06:59 06:59
Intake Total 100 / 100 1700 / 1700
Output Total 525 / 525
Balance -425 / -425 1700 / 1700
--- NOTE | 2024-05-21 15:01 | W.PN.UPDATE ---
Update Note
Progress Note Update
stopped trazodone at hs . he cannot take po now. if he resumes taking zyprexa and haldol at hs eventually would reassess need for trazodone
[2024-05-21 15:52] VITALS: BP 109/70
[2024-05-21] MEDS: D5/0.45%NACL 1000 IV (17:39)
[2024-05-21] MEDS: LOVENOX 40 MG SC (17:40)
[2024-05-21] MEDS: ZYPREXA PO (22:15)
[2024-05-21 23:24] VITALS: BP 144/89
[2024-05-22 07:22] VITALS: BP 108/69
[2024-05-22] MEDS: DUONEB 3 ML INH ×4 (07:35→20:43)
--- NOTE | 2024-05-22 09:12 | PTOTSP ---
ST Dysphagia TX
Known moderate oropharyngeal dysphagia s/p VFSS 05/18/24
Pt received asleep awoke to verbal/tactile stim. No verbal or gestural responses throughout session however maintained alertness, eyes open +eye contact. HOB raised upright for PO trials of puree, moderately-thick liquids and single ice chips. Head
with R-side lean pillow support was needed.
Demo adequate oral access, containment, prolonged bolus manipulation and suspected swallow delay. Unable to assess vocal quality however no overt s/sx of aspiration observed.
Recommendations
1. Cautious reinitiation of puree (L4) and moderately-thick liquids (L3) by tsp
2. Aspiration precautions and 100% feeding assist
3. Only feed when pt is awake/alert and stop if fatiguing/lethargic
4. Small bites, liquids by tsp and slow rate
5. Medications oral advise crushed into apple sauce
6. CIVIL ENGINEERING PROFESSIONAL following; low threshold to d/c diet and reinstate NPO if concern for aspiration
D/w RN and chat to physician re: tx findings and recommendations
--- NOTE | 2024-05-22 10:44 | W.PN.UPDATE ---
Update Note
Progress Note Update
Patient is calm and not agitated or aggressive. He responds to questions such as being able to recognize his name or that he is of Syriac origin but unable to have any conversation which is likely his baseline.
Would continue the Zyprexa and Haldol as it seems to control his agitation /aggression.
[2024-05-22] MEDS: DUPHALAC/CHRONULAC PO (10:47)
[2024-05-22] MEDS: VITAMIN B1 100 MG PO (11:20)
[2024-05-22] MEDS: D5/0.45%NACL 1000 IV (11:20)
[2024-05-22] MEDS: SENNA SYRUP 17.6 MG PO ×2 (11:20→21:18)
[2024-05-22] MEDS: HALDOL 2 MG PO ×2 (11:20→21:17)
[2024-05-22] MEDS: FLEET MINERAL OIL ENEMA RECTAL (11:20)
--- NOTE | 2024-05-22 12:13 | W.PN.HOSP.TC ---
Today's Communication/Plan
-
Pur�ed diet started today- watch for aspiration
MRI of the brain
Completed antibiotics
Labs in the morning
Assessment / Plan
Assessment / Plan
Pt is a 58 year old male with acute hypoxic respiratory failure
CVS: S1-S2 normal
Chest: decreased breath sounds, poor respiratory effort
Abdomen: Soft, NT / Bowel sounds present
Extremities: No edema
Patient does not follow instructions. Awake, and alert, follows some directions, not consistently.
Able to move extrimities.
# Acute Hypoxic Respiratory Failure and Sepsis with TME likely secondary to Pneumonia (confirmed by CXR)
Although seems subtle--off HI CHANDRAKANT, Off O2 now
Chest CT with occlusion of the left lower lobe bronchus-Pulm saw pt
Completed Zosyn
Speech has cleared patient for pur�ed diet 05/22/24
Unclear why he has dysphagia. I have ordered an MRI of the brain.
Strict aspiration precautions and head of bed elevation.
#CT ab/pelvis with fecal impaction--apprec CRS--suppository/enema plus laxatives. Check X ray abdomen
#Hypernatremia-Resolved
#Traumatic Brain Injury - Unknown Baseline-- Ammonia < 9--sister told PA that he has had 'liver issues'
#Schizoaffective Disorder--continue Haldol 2 mg p.o. twice daily, lorazepam 1 mg as needed, olanzapine 20 mg at bedtime, trazodone 25 mg at bedtime-when patient can take p.o. Currently n.p.o. even for medicines per discussion with speech.
I have requested psychiatry evaluation to get advice on medicines/parenteral routes.
Psyche following and making adjustments to meds.
#Compression fracture involving the superior endplate of L4, associated with approximately 30% height loss.
#DVT proph: Lovenox
#Code Status: Full Code (Patient's guardian makes all of patient's decisions in terms of advanced directives)
('Dr. Enrique Spoke with patient's sister Erin (not Guardian) who is currently in [place] until June. She can be reached at [phone]--apparently very involved
spoke with guardian (Mohsen Shea) in person and sister Erin by phone to update 05/17/24')
Dr. Ibanez Spoke to patient's guardian Mohsen Shabbir 05/21/24, reviewed that he is n.p.o. per speech recommendation. He is aware that if he continues to fail speech evaluation it comes to a point where PEG tube/palliative care or hospice may need to
be pursued.
Discussed with nursing at bedside
D/W speech
Anticipated Discharge: 24 - 48 hours
Subjective/Interval History
-
Date of Service: May 22, 2024
Objective Data
-
Vital Signs:
Vital Signs
Temp Pulse Resp BP Pulse Ox
97.8 F 77 18 108/69 97
05/22/24 07:22 05/22/24 11:20 05/22/24 11:20 05/22/24 07:22 05/22/24 11:20
I&O
05/21/24 05/22/24 05/23/24
06:59 06:59 06:59
Intake Total 1700 / 1700
Output Total 1400 / 1400
Balance 1700 / 1700 -1400 / -1400
[2024-05-22 15:04] VITALS: BP 115/76
--- NOTE | 2024-05-22 15:06 | PTCARENOTE ---
speech saw pt at the beginning of shift and stated he was ok to go back on pureed and mildly thick liquids. Tolerated lunch fed by RN. Abdominal xray completed. Pt's sister called from [place] and was given update. She spoke with pt who interacted
with her. MRI had called stating they attempted to call sister for information but couldn't get through. 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 Pt's guardian told MRI he was not able to provided any medical information.
[2024-05-22] MEDS: LOVENOX 40 MG SC (17:08)
[2024-05-22] MEDS: DUPHALAC/CHRONULAC 20 GRAMS PO ×2 (17:08→21:18)
[2024-05-22] MEDS: ZYPREXA 15 MG PO (21:18)
[2024-05-22 23:11] VITALS: BP 114/70
--- NOTE | 2024-05-23 06:30 | PTCARENOTE ---
Decreased urine output overnight. Bladder scan showed > 393. Straight cath output 600 cc, mele clear urine. Tolerated well. Due to void again at 1200 pm. Replaced condom cath size 30 for incontinence.
[2024-05-23 07:30] VITALS: BP 141/87
[2024-05-23] MEDS: DUONEB 3 ML INH ×4 (07:42→20:31)
[2024-05-23] MEDS: VITAMIN B1 100 MG PO (08:49)
[2024-05-23] MEDS: SENNA SYRUP 17.6 MG PO ×2 (08:49→20:56)
[2024-05-23] MEDS: DUPHALAC/CHRONULAC 20 GRAMS PO ×3 (08:49→20:57)
[2024-05-23] MEDS: HALDOL 2 MG PO ×2 (08:49→20:56)
--- NOTE | 2024-05-23 11:27 | W.PN.UPDATE ---
Update Note
Progress Note Update
Patient is asleep but no significant behavioral problems or issues noted.
Would continue current psychotropic medications.
--- NOTE | 2024-05-23 14:27 | W.PN.HOSP.TC ---
Today's Communication/Plan
-
DC planning
Assessment / Plan
Assessment / Plan
Pt is a 58 year old male with acute hypoxic respiratory failure
# Acute Hypoxic Respiratory Failure and Sepsis with TME likely secondary to Pneumonia (confirmed by CXR)
Although seems subtle--off HI CHANDRAKANT, Off O2 now
Chest CT with occlusion of the left lower lobe bronchus-Pulm saw pt
Completed Zosyn
Speech has cleared patient for pur�ed diet 05/22/24
Unclear why he has dysphagia. I have ordered an MRI of the brain.
Strict aspiration precautions and head of bed elevation.
#CT ab/pelvis with fecal impaction--apprec CRS--suppository/enema plus laxatives.
#Hypernatremia-Resolved
#Traumatic Brain Injury - Unknown Baseline-- Ammonia < 9--sister told PA that he has had 'liver issues'
#Schizoaffective Disorder--continue Haldol 2 mg p.o. twice daily, lorazepam 1 mg as needed, olanzapine 20 mg at bedtime, trazodone 25 mg at bedtime-when patient can take p.o. Currently n.p.o. even for medicines per discussion with speech.
I have requested psychiatry evaluation to get advice on medicines/parenteral routes.
Psyche following and making adjustments to meds.
#Compression fracture involving the superior endplate of L4, associated with approximately 30% height loss.
#DVT proph: Lovenox
#Code Status: Full Code (Patient's guardian makes all of patient's decisions in terms of advanced directives)
('Dr. Enrique Spoke with patient's sister Erin (not Guardian) who is currently in [facility] until June. She can be reached at [phone]--apparently very involved
spoke with guardian (Mohsen Shea) in person and sister Erin by phone to update 05/17/24')
Dr. Ibanez Spoke to patient's guardian Mohsen Shea 05/21/24, reviewed that he is n.p.o. per speech recommendation. He is aware that if he continues to fail speech evaluation it comes to a point where PEG tube/palliative care or hospice may need to
be pursued.
Anticipated Discharge: Within 24 hours
Subjective/Interval History
-
Date of Service: May 23, 2024
Pt is confused but no agitation.
Objective Data
-
Vital Signs:
Vital Signs
Temp Pulse Resp BP Pulse Ox
98.7 F 86 16 141/87 95
05/23/24 07:30 05/23/24 11:15 05/23/24 11:15 05/23/24 07:30 05/23/24 07:30
I&O
05/22/24 05/23/24 05/24/24
06:59 06:59 06:59
Intake Total 200 / 200
Output Total 1400 / 1400 1175 / 1175
Balance -1400 / -1400 -975 / -975
Review of Systems
-
Unable to obtain full review of systems at this time due to: Other (cognitive impairment)
Physical Exam
-
General: No Apparent Distress
Respiratory: Non Labored Respirations; Negative Accessory Resp Muscle Use
Cardiac: Regular Rhythm and S1/S2
GI: Soft
Neuro: Awake and Alert
Psych: Calm and Confused; Negative Agitated
Data Reviewed
-
Labs: Labs Reviewed by me (pending)
[2024-05-23 15:25] VITALS: BP 122/72
[2024-05-23] MEDS: LOVENOX 40 MG SC (17:09)
[2024-05-23] MEDS: ZYPREXA 15 MG PO (20:57)
[2024-05-23 23:27] VITALS: BP 129/74
[2024-05-24] MEDS: DUONEB 3 ML INH ×3 (07:17→15:16)
[2024-05-24] MEDS: SENNA SYRUP PO (07:56)
[2024-05-24] MEDS: VITAMIN B1 PO (07:56)
[2024-05-24] MEDS: HALDOL PO (07:56)
[2024-05-24] MEDS: DUPHALAC/CHRONULAC PO (07:56)
[2024-05-24 08:29] VITALS: BP 126/88
--- NOTE | 2024-05-24 09:05 | PTOTSP ---
Speech Language Pathology
Pt seen for dysphagia tx. Currently back on IDDSI Level 4/moderately thick liquids via tsp. Seen with breakfast tray. Provided pureed pancake, half pureed sausage, and 4 ounces of moderately thick orange juice via tsp. Wet coughing episode noted
x1 post orange juice. Transport then arrived to take pt to MRI. RN reclined bed with immediate wet coughing noted. Question potential aspiration of pharyngeal residue.
VSE completed 05/18 which showed mostly laryngeal penetration with aspiration only with a liquid wash of thins after regular solids (cough response noted). However, VSE seems to not capture swallow function across a meal, as he has had consistent
signs of aspiration with meals. No recent blood work or chest imaging available to monitor if pt is tolerating diet despite intermittent signs of aspiration. MRI of brain being completed at this time given dysphagia. Question if dysphagia is
acute vs chronic but unidentified given CT of chest findings on admission.
Recommend:
(1) Consider NPO with GOC discussions
(2) If family decides to accept risk, would continue IDDSI Level 4 (Puree) and Moderately thick liquids via tsp
(3) Meds crushed in puree
(4) INVESTMENT CONSULTANT to continue to follow
[2024-05-24] MEDS: HALDOL 2 MG PO (10:22)
[2024-05-24] MEDS: SENNA SYRUP 17.6 MG PO (10:22)
[2024-05-24] MEDS: DUPHALAC/CHRONULAC 20 GRAMS PO ×2 (10:22→15:47)
[2024-05-24] MEDS: VITAMIN B1 100 MG PO (10:22)
[2024-05-24 10:47] VITALS: BP 119/83; PULSE 103
--- NOTE | 2024-05-24 12:11 | W.PN.HOSP.TC ---
Addendum entered and electronically signed by Steve Serrano MD 05/24/24 15:15:
updated his guardian Mohsen Howard on phone regarding the MRI brain results and discharge plan.
Original Note:
Today's Communication/Plan
-
Follow MRI brain
DC based on findings
Assessment / Plan
Assessment / Plan
Pt is a 58 year old male with acute hypoxic respiratory failure
#Acute Hypoxic Respiratory Failure and Sepsis with TME likely secondary to Pneumonia
off HI CHANDRAKANT, Off O2 now
Chest CT with occlusion of the left lower lobe bronchus-Pulm saw pt
Completed Zosyn
Speech has cleared patient for pur�ed diet 05/22/24
Unclear why he has dysphagia. MRI of the brain was ordered and pending.
Strict aspiration precautions and head of bed elevation.
#CT ab/pelvis with fecal impaction--apprec CRS--suppository/enema plus laxatives.
#Hypernatremia-Resolved
#Traumatic Brain Injury - Unknown Baseline-- Ammonia < 9--sister told PA that he has had 'liver issues'
#Schizoaffective Disorder-
Psyche following and making adjustments to meds.
#Compression fracture involving the superior endplate of L4, associated with approximately 30% height loss.
#DVT proph: Lovenox
#Code Status: Full Code (Patient's guardian makes all of patient's decisions in terms of advanced directives)
('Dr. Enrique Spoke with patient's sister Erin (not Guardian) who is currently in [facility] until June. She can be reached at [phone]--apparently very involved
spoke with guardian (Mohsen Shea) in person and sister Erin by phone to update 05/17/24')
Dr. Ibanez Spoke to patient's guardian Mohsen Shea 05/21/24, reviewed , He is aware that if he continues to fail speech evaluation it comes to a point where PEG tube/palliative care or hospice may need to be pursued.
Anticipated Discharge: Today
Subjective/Interval History
-
Date of Service: May 24, 2024
No event overnight.
Bit sleepy today ;noted by RN as well
Objective Data
-
Vital Signs:
Vital Signs
Temp Pulse Resp BP Pulse Ox
97.6 F 92 16 126/88 94
05/24/24 08:29 05/24/24 11:21 05/24/24 11:21 05/24/24 08:29 05/24/24 11:21
I&O
05/23/24 05/24/24 05/25/24
06:59 06:59 06:59
Intake Total 200 / 200 460 / 460
Output Total 1175 / 1175 950 / 950
Balance -975 / -975 -490 / -490
Review of Systems
-
Unable to obtain full review of systems at this time due to: Other (Sleepy but arousable.)
Physical Exam
-
General: Comfortable
HEENT: Moist Mucous Membranes
Respiratory: Clear to Auscultation (anteriorly) and Non Labored Respirations; Negative Accessory Resp Muscle Use
Cardiac: Regular Rhythm and S1/S2; Negative Tachycardic
GI: Soft
Neuro: Negative Awake (sleepy but arousable)
Psych: Calm
--- NOTE | 2024-05-24 12:47 | CM ---
Addendum entered by Nohemy Adan 05/24/24 14:08:
Plan: [facility]
report# [phone]

Original Note:
Bed available at [facility] per Jean.
TC to [facility] p# [phone] spoke with Jose and transferred to medical management at [phone] and spoke with Ramon.
Intake info given to Ramon and referred to nurse.
Insurance auth form [facility] from Nurse Marino at p#[phone].
Approved 30 days with the 30 th day being 06/22/24, facility needs to notify plan on day 31, 06/23/24 with disposition.
Facility needs to let plan know if patient is readmitted or transferred to another facility.
Auth# [id number]
Jean updated with auth and transport time 6 pm.
Mitzy Shea updated.
Await report numbers.
--- NOTE | 2024-05-24 15:11 | W.DS.TRANS ---
DC Summary - Service Order Dispatcher
-
Discharge Instructions:
Discharge Diagnosis/Procedures Aspiration pneumonia;dysphagia; TBI; Urinary
retention
Diet Other diet
Additional Diets IDDSI 4 pureed, moderately thick liquids(honey)
Activity As tolerated
Driving Restrictions No driving
Other Services PT,OT
Instructions:
Stand-Alone Forms:
Changes to Home Medications: Yes
Discharge Medications:
DC Medications w/original date entered in [employer]
acetaminophen 325 mg tablet 650 mg PO Q6HPRN PRN temp >100.4 mild pain 07/19/23
bisacodyl 10 mg rectal suppository 10 mg MA DAILYPRN PRN if on bm aftr mom 07/19/23
melatonin 3 mg tablet 3 mg PO HS Sleep 07/19/23
olanzapine 20 mg tablet 20 mg PO HS Mental Health 07/19/23
thiamine HCl (vitamin B1) 100 mg tablet 100 mg PO DAILY Supplement 07/19/23
haloperidol 2 mg tablet 2 mg PO BID Mental Health 05/16/24
lactulose 10 gram/15 mL (15 mL) oral solution 20 g PO TID Gastrointestinal Issue 05/16/24
magnesium hydroxide 400 mg/5 mL oral suspension (Milk of Magnesia) 2,400 mg PO [id number] PRN constipation 05/16/24
polyethylene glycol 3350 17 gram oral powder packet (Miralax) 17 g PO DAILYPRN PRN constipation 05/16/24
trazodone 50 mg tablet 25 mg PO HS Mental Health 05/16/24
olanzapine 15 mg tablet 15 mg PO HS #1 tab 05/24/24
sennosides 8.8 mg/5 mL oral syrup 17.6 mg (10 mL) PO BID #1 mL 05/24/24
Home Medication Changes
New medication - Olanzapine
Pending Results: No
[2024-05-24] MEDS: MIRALAX 17 GRAMS PO (15:47)
[2024-05-24 16:53] VITALS: BP 119/77
== END 2024-05-24 19:26 | DRG 871 ==
LOC: 4 WEST ACU 13:02
PROVIDERS: Hospitalist; Nurse Practitioner Family; Physician Assistant Medical; ADMITTING PHYSICIAN Internal Medicine; ATTENDING PHYSICIAN Internal Medicine; CONSULT PHYSICIAN Internal Medicine; CONSULT PHYSICIAN Psychiatry & Neurology Psychiatry; CONSULT PHYSICIAN Surgery; EMERGENCY PHYSICIAN Emergency Medicine; FAMILY PHYSICIAN Internal Medicine
DX: A41.9 Sepsis, unspecified organism (principal); G92.8 Other toxic encephalopathy; J18.9 Pneumonia, unspecified organism; J96.01 Acute respiratory failure with hypoxia; J44.0 Chronic obstructive pulmonary disease with (acute) lower respiratory infection; E87.0 Hyperosmolality and hypernatremia; E87.1 Hypo-osmolality and hyponatremia; J98.11 Atelectasis; F25.9 Schizoaffective disorder, unspecified; K56.41 Fecal impaction; F41.9 Anxiety disorder, unspecified; Z11.52 Encounter for screening for COVID-19
CPT/HCPCS: 70450; 70551; 71045; 71260; 74019; 74177; 74230; 80048; 80053; 81003; 82140; 83605; 83735; 84132; 85025; 85027; 87040; 87150; 87205; 87641; 87811; 92526; 92610; 92611; 93005; 94640; 94669; 96365; 96375; 97163; 97166; 97530; 97535; 99291; Q9967